=== PATIENT | female | born 1950 | race Caucasian/White ===

== ENCOUNTER → 2017-10-03 00:48 | Outpatient (CLI) | payer BC, SELFPAY ==
[2017-10-03 11:31] LABS: CREATININE 0.71 mg/dL (0.55-1.02); Cholesterol 247 mg/dL (50-200); Glucose 92 mg/dL (70-100); HDL Cholesterol 92 mg/dL (40-60); LDL CHOLESTEROL 148 mg/dL (<100); Triglyceride 52 mg/dL (30-150)
== END ==
PROVIDERS: PCP Family Medicine; Visit Provider Family Medicine
DX: E78.5 Hyperlipidemia, unspecified (principal); I48.0 Paroxysmal atrial fibrillation; Z13.1 Encounter for screening for diabetes mellitus
CPT/HCPCS: 36415; 80061; 82947; 83721; 82565

== ENCOUNTER 2018-07-31 02:05 | Outpatient (CLI) | payer BC, SELFPAY ==
[2018-07-31 11:25] LABS: Cholesterol 195 mg/dL (50-200); HDL Cholesterol 77 mg/dL (40-60); LDL CHOLESTEROL 97 mg/dL (<100); Triglyceride 65 mg/dL (30-150)
[2018-08-03 11:16] LABS: Hepatitis C Ab w Rflx HCV PCR Negative (NEGAT)
== END 2018-07-31 02:25 ==
PROVIDERS: PCP Family Medicine; Visit Provider Family Medicine
DX: E78.5 Hyperlipidemia, unspecified (principal); Z11.59 Encounter for screening for other viral diseases
CPT/HCPCS: 36415; 80061; 83721; 86803

== ENCOUNTER → 2019-04-06 10:23 | Outpatient (BNVA) | payer MEDICARE, BC, SELFPAY | PROVIDERS: PCP Family Medicine; Referring Provider Family Medicine; Visit Provider Internal Medicine Cardiovascular Disease | DX: I48.0 Paroxysmal atrial fibrillation (principal); E78.00 Pure hypercholesterolemia, unspecified | CPT/HCPCS: 99204; 99215 ==

== ENCOUNTER 2019-09-16 02:53 | Outpatient (CLI) | payer MEDICARE, BC, SELFPAY ==
[2019-09-16 13:04] LABS: CREATININE 0.64 mg/dL (0.55-1.02); Calculated LDL 80 mg/dL (<100); Cholesterol 162 mg/dL (<200); HDL Cholesterol 70 mg/dL (40-60); Triglyceride 61 mg/dL (<150)
== END 2019-09-16 03:13 ==
PROVIDERS: PCP Family Medicine; Visit Provider Family Medicine
DX: E78.5 Hyperlipidemia, unspecified (principal); I48.0 Paroxysmal atrial fibrillation
CPT/HCPCS: 36415; 80061; 82565

== ENCOUNTER → 2020-05-02 11:32 | Outpatient (BNVA) | payer MEDICARE, BC, SELFPAY | PROVIDERS: PCP Family Medicine; Referring Provider Family Medicine; Visit Provider Internal Medicine Cardiovascular Disease | DX: I48.0 Paroxysmal atrial fibrillation (principal); E78.00 Pure hypercholesterolemia, unspecified; Z79.01 Long term (current) use of anticoagulants | CPT/HCPCS: 99214; 99213 ==

== ENCOUNTER 2020-05-29 15:39 | Outpatient (REF) | payer MEDICARE, BC, SELFPAY ==
--- NOTE | 2020-05-29 14:42 | SKI_PTH ---
PATIENT: Kathy Elaine LOC: [facility] U#:[id number] AGE/SX: 70/F ROOM: RE05/29/[address]: Speedy Cruz DO : 1950 BED: DIS: 05/29/2020 SPEC #: [id number] RECD: 05/29/20 18:06 STATUS: MARLON REQ #: [id number] BRETT: 05/29/20 14:[address]: Speedy Cruz DEPT: Surgical Specimen RECD BY: Tamika Rasmussen ENTERED: 05/29/20 18:06 SP TYPE: SKI OTHR DR: Enoc Collier MD Tissues: 1 - SKIN BIOPSY(SHAVE/PUNCH) Procedures: SKIN LEVEL 4 Comments: [id number]
== END 2020-05-29 15:40 | disposition home or self-care (01) ==
LOC: LBN 15:39
PROVIDERS: PCP Family Medicine; Visit Provider Otolaryngology Otolaryngology/Facial Plastic Surgery
DX: C44.311 Basal cell carcinoma of skin of nose (principal)
CPT/HCPCS: 88305

== ENCOUNTER 2020-09-14 03:39 | Outpatient (CLI) | payer MEDICARE, BC, SELFPAY ==
[2020-09-14 07:53] LABS: HCT 41.1 % (36.0-46.0); HGB 13.5 g/dL (11.2-15.7); MCH 31.8 pg (27.0-33.0); MCHC 32.8 % (32.0-36.0); MCV 96.7 fL (80-95); MPV 8.4 fL (8.0-11.0); Platelet Count 213 10^3/uL (130-400); RBC 4.25 10^6/uL (3.93-5.22); RDW 11.6 % (11.7-14.6); RDW-SD 40.9 fL; WBC 5.73 10^3/uL (4.4-10.8)
[2020-09-14 10:02] LABS: Glucose 101 mg/dL (74-106)
[2020-09-15 21:21] LABS: Calculated LDL 125 mg/dL (<100); Cholesterol 239 mg/dL (<200); HDL Cholesterol 99 mg/dL (40-60); Triglyceride 78 mg/dL (<150)
== END 2020-09-14 03:40 | disposition home or self-care (01) ==
LOC: LBO 03:39
PROVIDERS: PCP Family Medicine; Visit Provider Family Medicine
DX: E78.5 Hyperlipidemia, unspecified (principal); R73.9 Hyperglycemia, unspecified; R53.83 Other fatigue
CPT/HCPCS: 36415; 80061; 82947; 85027

== ENCOUNTER → 2020-09-26 10:57 | Outpatient (BNVA) | payer MEDICARE, BC, SELFPAY | PROVIDERS: PCP Family Medicine; Referring Provider Family Medicine; Visit Provider Internal Medicine Cardiovascular Disease | DX: I48.0 Paroxysmal atrial fibrillation (principal); E78.00 Pure hypercholesterolemia, unspecified | CPT/HCPCS: 99214; 99213 ==

== ENCOUNTER 2020-09-29 03:24 | Outpatient (CLI) | payer MEDICARE, BC, SELFPAY ==
[2020-09-29 08:44] LABS: Calculated LDL 95 mg/dL (<100); Cholesterol 204 mg/dL (<200); HDL Cholesterol 100 mg/dL (40-60); Triglyceride 46 mg/dL (<150)
== END 2020-09-29 03:25 | disposition home or self-care (01) ==
LOC: LBO 03:24
PROVIDERS: PCP Family Medicine; Visit Provider Internal Medicine Cardiovascular Disease
DX: E78.00 Pure hypercholesterolemia, unspecified (principal)
CPT/HCPCS: 36415; 80061

== ENCOUNTER 2020-11-24 02:51 | Outpatient (CLI) | payer MEDICARE, BC, SELFPAY ==
[2020-11-24 09:26] LABS: Calculated LDL 82 mg/dL (<100); Cholesterol 182 mg/dL (<200); HDL Cholesterol 92 mg/dL (40-60); Triglyceride 40 mg/dL (<150)
== END 2020-11-24 02:52 | disposition home or self-care (01) ==
LOC: LBO 02:51
PROVIDERS: PCP Family Medicine; Visit Provider Internal Medicine Cardiovascular Disease
DX: E78.00 Pure hypercholesterolemia, unspecified (principal)
CPT/HCPCS: 36415; 80061

== ENCOUNTER → 2021-01-04 10:46 | Outpatient (BNVA) | payer MEDICARE, BC, SELFPAY | PROVIDERS: PCP Family Medicine; Visit Provider Internal Medicine Cardiovascular Disease | DX: I48.0 Paroxysmal atrial fibrillation (principal); E78.00 Pure hypercholesterolemia, unspecified; Z79.899 Other long term (current) drug therapy | CPT/HCPCS: 99213 ==

== ENCOUNTER → 2021-07-05 10:59 | Outpatient (BNVA) | payer MEDICARE, BC, SELFPAY | PROVIDERS: PCP Family Medicine; Referring Provider Family Medicine; Visit Provider Internal Medicine Cardiovascular Disease | DX: I48.0 Paroxysmal atrial fibrillation (principal); E78.00 Pure hypercholesterolemia, unspecified | CPT/HCPCS: 99214; 99213 ==

== ENCOUNTER 2021-08-10 14:40 | Outpatient (REF) | payer MEDICARE, BC, SELFPAY ==
--- NOTE | 2021-08-10 13:45 | SKI_PTH ---
PATIENT: Kathy Elaine LOC: [facility] U#:[id number] AGE/SX: 71/F ROOM: RE08/10/[address]: KHOI Rader : 1950 BED: DIS: 08/10/2021 SPEC #: [id number] RECD: 08/10/21 18:25 STATUS: MARLON REQ #: [id number] BRETT: 08/10/21 13:[address]: Too Roach DEPT: Surgical Specimen RECD BY: Tamika Rasmussen ENTERED: 08/10/21 18:25 SP TYPE: DB CASTILLO DR: Enoc Collier MD Tissues: 1 - SKIN BIOPSY(SHAVE/PUNCH) Procedures: SKIN LEVEL 4 Comments:
== END 2021-08-10 14:41 | disposition home or self-care (01) ==
LOC: LBN 14:40
PROVIDERS: PCP Family Medicine; Visit Provider Physician Assistant
DX: D22.5 Melanocytic nevi of trunk (principal)
CPT/HCPCS: 88305

== ENCOUNTER 2021-10-05 01:50 | Outpatient (CLI) | payer MEDICARE, BC, SELFPAY ==
[2021-10-05 07:18] LABS: HCT 34.4 % (36.0-46.0); HGB 11.7 g/dL (11.2-15.7); MCH 32.3 pg (27.0-33.0); MCV 95 fL (80-95); MPV 8.3 fL (8.0-11.0); Platelet Count 175 10^3/uL (130-400); RBC 3.62 10^6/uL (3.93-5.22); RDW 11.5 % (11.7-14.6); RDW-SD 39.9 fL; WBC 4.31 10^3/uL (4.4-10.8)
[2021-10-05 07:37] LABS: Calculated LDL 72 mg/dL (<100); Cholesterol 178 mg/dL (<200); HDL Cholesterol 97 mg/dL (40-60); Triglyceride 49 mg/dL (<150)
== END 2021-10-05 01:51 | disposition home or self-care (01) ==
LOC: LBO 01:50
PROVIDERS: PCP Family Medicine; Visit Provider Family Medicine
DX: R53.83 Other fatigue (principal); E78.5 Hyperlipidemia, unspecified
CPT/HCPCS: 36415; 80061; 85027

== ENCOUNTER → 2021-12-13 01:30 | Outpatient (CLI) | payer MEDICARE, BC, SELFPAY ==
--- NOTE | 2021-12-13 08:00 | DI.DEXA_ITS ---
Exam(s) XR DEXA BONE DENSITY W/WO MOLLY EXAM: XR DEXA BONE DENSITY W/WO MOLLY CLINICAL HISTORY: fibular fracture Z78.0 MENOPAUSAL SCREENING FOR OSTEOPOROSIS TECHNIQUE: COMPARISON: No exams were available for comparison FINDINGS: Lateral Spine Image: Unremarkable. No compression deformities identified. Left hip: Total T-Score: -1.8 Total Z-Score: -0.3 T- and Z-scores: Findings are consistent with osteopenia. Lumbar Spine: Total T-Score: -2.7 Total Z-Score: -0.5 T- and Z-scores: Findings are consistent with osteoporosis. IMPRESSION: Osteoporosis in the lumbar spine.
== END ==
PROVIDERS: PCP Family Medicine; Visit Provider Family Medicine
DX: Z78.0 Asymptomatic menopausal state (principal); Z13.820 Encounter for screening for osteoporosis; M85.88 Other specified disorders of bone density and structure, other site; M81.0 Age-related osteoporosis without current pathological fracture
CPT/HCPCS: 77080

== ENCOUNTER 2022-01-08 03:19 | Outpatient (CLI) | payer MEDICARE, BC, SELFPAY ==
[2022-01-08 07:30] LABS: Abs Immature Grans 0.01 10^3/uL (0.0-0.06); Absolute Basophil Count 0.05 10^3/uL (0.0-0.2); Absolute Eosinophil Count 0.14 10^3/uL (0.0-0.7); Absolute Lymphocyte Count 1.65 10^3/uL (1.2-3.4); Absolute Monocyte Count 0.38 10^3/uL (0.1-0.8); Absolute Neutrophil Count 2.15 10^3/uL (1.2-6.7); Basophils % 1.1; Eosinophils % 3.2; HCT 36.3 % (36.0-46.0); HGB 12.3 g/dL (11.2-15.7); Immature Grans % 0.2; Lymphocytes % 37.7; MCH 32.1 pg (27.0-33.0); MCHC 33.9 % (32.0-36.0); MCV 95 fL (80-95); MPV 8.7 fL (8.0-11.0); Monocytes % 8.7; Neutrophils % 49.1; Platelet Count 205 10^3/uL (130-400); RBC 3.83 10^6/uL (3.93-5.22); RDW 11.2 % (11.7-14.6); RDW-SD 38.5 fL; WBC 4.38 10^3/uL (4.4-10.8)
== END 2022-01-08 03:20 | disposition home or self-care (01) ==
LOC: LBO 03:19
PROVIDERS: PCP Family Medicine; Visit Provider Family Medicine
DX: D64.9 Anemia, unspecified (principal)
CPT/HCPCS: 36415; 85025

== ENCOUNTER 2022-02-08 14:32 | Outpatient (REF) | payer MEDICARE, BC, SELFPAY ==
--- NOTE | 2022-02-08 14:15 | SKI_PTH ---
PATIENT: Kathy Elaine LOC: [facility] U#:[id number] AGE/SX: 71/F ROOM: RE02/08/[address]: KHOI Rader : 1950 BED: DIS: 02/08/2022 SPEC #: [id number] RECD: 02/11/22 12:12 STATUS: MARLON REQ #: [id number] BRETT: 02/08/22 14:[address]: Too Roach DEPT: Surgical Specimen RECD BY: Tamika Rasmussen ENTERED: 02/11/22 12:13 SP TYPE: DB CASTILLO DR: Enoc Collier MD Tissues: 1 - SKIN BIOPSY(SHAVE/PUNCH) Procedures: IMMUNOPEROXIDASE STAIN SKIN LEVEL 4 Comments: [id number]
== END 2022-02-08 14:33 | disposition home or self-care (01) ==
LOC: LBN 14:32
PROVIDERS: PCP Family Medicine; Visit Provider Physician Assistant
DX: D22.5 Melanocytic nevi of trunk (principal)
CPT/HCPCS: 88305; 88361

== ENCOUNTER 2022-07-09 07:51 | Outpatient (CLI) | payer MEDICARE, BC, SELFPAY | END 2022-07-09 07:52 | disposition home or self-care (01) | LOC: DI.CARD 07:52 | PROVIDERS: PCP Family Medicine; Visit Provider Internal Medicine Cardiovascular Disease | DX: I48.91 Unspecified atrial fibrillation (principal) | CPT/HCPCS: 93010 ==

== ENCOUNTER → 2022-07-09 13:18 | Outpatient (BNVA) | payer MEDICARE, BC, SELFPAY | PROVIDERS: PCP Family Medicine; Visit Provider Internal Medicine Cardiovascular Disease | DX: I48.0 Paroxysmal atrial fibrillation (principal); E78.00 Pure hypercholesterolemia, unspecified; Z79.01 Long term (current) use of anticoagulants | CPT/HCPCS: 93005; 99213 ==

== ENCOUNTER 2022-07-15 16:50 | Outpatient (REF) | payer MEDICARE, BC, SELFPAY | END 2022-07-15 16:51 | disposition home or self-care (01) | LOC: LBN 16:50 | PROVIDERS: PCP Family Medicine; Visit Provider Nurse Practitioner Family | DX: L02.31 Cutaneous abscess of buttock (principal) | CPT/HCPCS: 87070; 87205 ==

== ENCOUNTER → 2022-07-31 12:57 | Outpatient (BNVA) | payer MEDICARE, BC, SELFPAY | PROVIDERS: PCP Family Medicine; Referring Provider Family Medicine; Visit Provider Surgery | DX: L02.31 Cutaneous abscess of buttock (principal) | CPT/HCPCS: 99213 ==

== ENCOUNTER 2023-07-01 08:09 | Outpatient (CLI) | payer MEDICARE, BC, SELFPAY ==
--- NOTE | 2023-07-01 08:00 | RT.EKG_ITS ---
APPROVED REPORT Exam: Resting ECG Reason for Exam: PAF Patient Location: O HR:108 bpm ECG Measurements Heart Rate 108 AXIS ME [id number] P [id number] QRSd 124 QRS 29 QT 344 T 18 QTc 461 Conclusion Atrial fibrillation...V-rate 71-142, irreg A-activity Baseline wander in lead(s) II,aVF
== END 2023-07-01 08:10 | disposition home or self-care (01) ==
LOC: DI.CARD 08:10
PROVIDERS: PCP Family Medicine; Visit Provider Internal Medicine Cardiovascular Disease
DX: I48.0 Paroxysmal atrial fibrillation (principal)
CPT/HCPCS: 93010

== ENCOUNTER → 2023-07-01 13:23 | Outpatient (BNVA) | payer MEDICARE, BC, SELFPAY | PROVIDERS: PCP Family Medicine; Visit Provider Internal Medicine Cardiovascular Disease | DX: I48.0 Paroxysmal atrial fibrillation (principal) | CPT/HCPCS: 93005; 99213 ==

== ENCOUNTER → 2023-08-05 02:15 | Outpatient (CLI) | payer MEDICARE, BC, SELFPAY ==
--- NOTE | 2023-08-05 08:30 | DI.US_ITS ---
APPROVED REPORT EXAM: Comprehensive 2D, Doppler, and color-flow Echocardiogram Patient Location: Out-Patient Director Account Management: Abrahan Puentes RDCS (AE) Indications: Paroxysmal afib Conclusion Normal left ventricular wall thickness and chamber size. Ejection fraction is 55%. Wall motion is n ormal Normal right ventricular size and function Both atria are mildly dilated Trileaflet aortic valve without stenosis or regurgitation Mildly thickened mitral leaflets with mild to moderate regurgitation Mild tricuspid regurgitation. Estimated right ventricular systolic pressure is 29 mmHg Wall motion Left Ventricle The left ventricle is normal size. Left ventricular systolic function is normal. There is normal left ventricular wall thickness. There is normal LV segmental wall motion. There is no ventricular septal defect visualized. LVEF is 56%. Right Ventricle The right ventricle is normal size. Right ventricular systolic function is grossly normal. Atria Left atrium is mildly dilated. Right atrium is mildly dilated. The interatrial septum is intact with no evidence for an atrial septal defect. Aortic Valve The aortic valve is normal in structure. Aortic valve is trileaflet. There is no aortic valvular sten osis. No aortic regurgitation is present. Mitral Valve Mildly thickened mitral leaflets No evidence of mitral valve stenosis. Mild to moderate mitral regurg itation. Tricuspid Valve The tricuspid valve is normal in structure. There is no tricuspid valve stenosis. Mild tricuspid regu rgitation. The RVSP is 29.1 mmHg. Pulmonic Valve The pulmonary valve is normal in structure. There is no pulmonic valvular stenosis. There is no pulmo tyree valvular regurgitation. Great Vessels The aortic root is normal in size. The ascending aorta is normal in size. Aortic arch is normal in ca liber. IVC is normal in size and collapses >50% with inspiration. Pericardium There is no pericardial effusion. 2D Dimensions IVSD d PLAX 0.65 cm F: 0.6-1.0 Ao Root d 2.81 cm F: 2.7 - 3.3 LVPW d PLAX 0.68 cm F: 0.6 - 1.0 Ao Asc Diam d 3.09 cm F: 2.3 - 3.1 LVID d PLAX 4.62 cm F: 3.8 - 5.2 LVDs 3.30 cm F: 2.2 - 3.5 LV EF Teichholz 55.3 % FS 28.69 % LV EDV (Teich) 98.4 mL LV ESV (Teich) 44.0 mL Stroke Vol Index (Teich) 31.63 M-Mode TAPSE 2.88 cm (M/F) >1.7 Auto EF LV EDV A4C 82.5 mL LV EDV A2C 81.9 mL LV EDV BP 82.9 mL LV ESV A4C 39.9 mL LV ESV A2C 36.1 mL LV ESV BP 37.8 mL LVEF(%) A4C 51.6 % LVEF(%) A2C 55.9 % LVEF(%) BP 54.4 % LV SV A4C 42.5 ml LV SV A2C 45.8 ml LV SV BP 45.1 ml LV CO A4C 2.7 L/min LV CO A2C 2.8 L/min LV CO BP 2.7 L/min HR A4C 62.83 BPM HR A2C 61.23 BPM LV EDV Index (BP) LA Volume LA Length A4C 4.8 cm LA Length A2C 6.4 cm LA Area A4C s 14.91 cm2 LA Area A2C s 16.03 cm2 LA Vol A4C A-L 39.25 mL LA Vol A2C A-L 34.32 mL LA Vol Biplane A-L 42.2 mL LA Vol/BSA A4C A-L LA Vol/BSA A2C A-L LA Vol/BSA BP A-L 24.5 mL/m2 LA Vol A4C MOD 37.1 mL LA Vol A2C MOD 32.7 mL LA Vol BP MOD 39.6 mL RA Volume RA Area A4C 15.0 cm2 RA ESV A4C (A-L) 38.2mL RA Vol/BSA A4C A-L RA Length A4C 5.0 cm RA ESV A4C (MOD) 36.3mL LV Diastology MV E' medial 0.116 (>0.07 m/s) MV E Vmax 0.97 (0.4-1.3 m/s) MV E/E' MED 8.36 (<14) MV A Vmax 0.90 (0.4-1.3 m/s) MV E' lateral 0.129 (>0.1 m/s) E/A Ratio 1.1 MV E/E' LAT 7.53 (<14) MV E' Average 0.122 m/s MV E/E'(average) 7.93 Aortic Valve AoV Vmax 1.12 m/s LVOT Vmax 0.90 m/s AoV Peak Grad 5.1 mmHg LVOT Peak Grad 3.3 mmHg AoV Area (Vmax) 2.50 cm2 LVOT VTI 0.244 m AoV VTI 0.298 m LVOT Mean Grad 1.9 mmHg AoV Mean Magdy. 0.82 m/s LVOT SV 75.75 mL AoV Mean Grad 2.9 mmHg LVOT Diam s 1.95 cm AoV Area (VTI) 2.54 cm2 Velocity Ratio 0.80 Mitral Valve MV DT 233 (160-240 msec) Pulmonary Valve PV Vmax 0.80 (0.5-1.5 m/s) RVOT Vmax 0.49 m/s PV Peak Grad 2.6 mmHg RVOT Peak Gr. 1.0 mmHg PV Mean Magdy 0.60 m/s RVOT VTI 0.119 m PV Mean Grad 1.6 mmHg RVOT Mean Gr. 0.5 mmHg Tricuspid Valve RA Pressure 3.00 mmHg TR Vmax 2.56 m/s TR Peak Grad 26.1 mmHg RVSP (TR) 29.1 mmHg
== END ==
PROVIDERS: PCP Family Medicine; Visit Provider Internal Medicine Cardiovascular Disease
DX: I48.0 Paroxysmal atrial fibrillation (principal)
CPT/HCPCS: 93306

== ENCOUNTER 2023-11-07 01:09 | Outpatient (CLI) | payer MEDICARE, BC, SELFPAY ==
[2023-11-07 08:12] LABS: Calculated LDL 80 mg/dL (<100); Cholesterol 185 mg/dL (<200); Glucose 99 mg/dL (74-106); HDL Cholesterol 94 mg/dL (40-60); Triglyceride 55 mg/dL (<150)
[2023-11-07 08:16] LABS: Hemoglobin A1C 5.6 % (<5.7)
== END 2023-11-07 01:10 | disposition home or self-care (01) ==
PROVIDERS: PCP Family Medicine; Visit Provider Family Medicine
DX: E11.9 Type 2 diabetes mellitus without complications (principal); R73.9 Hyperglycemia, unspecified; E78.5 Hyperlipidemia, unspecified
CPT/HCPCS: 36415; 80061; 82947; 83036

== ENCOUNTER → 2023-12-29 13:17 | Outpatient (BNVA) | payer MEDICARE, BC, SELFPAY | PROVIDERS: PCP Family Medicine; Visit Provider Internal Medicine Cardiovascular Disease | DX: I48.0 Paroxysmal atrial fibrillation (principal) | CPT/HCPCS: 99213 ==

== ENCOUNTER 2024-05-29 18:38 | Emergency (ER) | payer MEDICARE, BC, SELFPAY ==
[2024-05-29] VITALS (19 sets, daily range): BP systolic 137–194; BP diastolic 75–144; PULSE 91–170; RESP 12–20; TEMP 36.6; O2SAT 92–98
--- NOTE | 2024-05-29 19:00 | DI.RAD_ITS ---
Exam(s) XR WRIST RT COMPLETE EXAM: XR WRIST RT COMPLETE CLINICAL HISTORY: + deformity distal radius. TECHNIQUE: 2D digital imaging was performed. COMPARISON: CR,XR XR WRIST LT COMPLETE from 05/29/2024 FINDINGS: 3 views There is a mildly impacted fracture of the distal radius which does not appear to obviously involve t he radiocarpal joint surface but does exhibit mild dorsal displacement of the distal fracture fragmen t. The ulnar styloid appears intact. There is no significant ulnar variance. Scaphoid and scapholunate distance unremarkable. Mild degenerative changes are noted in the triscaphe joint; less so at the 1 st carpometacarpal joint. IMPRESSION: Mildly impacted transverse fracture of the distal radius. The fracture line does not obviously invol ve the radiocarpal joint surface on this side. DATA REPOSITORY: RADIATION DOSE DELIVERED:
--- NOTE | 2024-05-29 19:00 | DI.RAD_ITS ---
Exam(s) XR WRIST LT COMPLETE EXAM: XR WRIST LT COMPLETE CLINICAL HISTORY: + deformity distal radius. TECHNIQUE: 2D digital imaging was performed. COMPARISON: No exams were available for comparison FINDINGS: 3 views There are fractures of the distal radius and ulna. The radial fracture is impacted and dorsally angu lated and involves the radiocarpal joint surface. The ulnar fracture is both at the neck and at the ulnar styloid, the latter being displaced. Scaphoi d and scapholunate distance are normal. No carpal dislocation. There are advanced degenerative craig ges in the 1st carpometacarpal joint noted. IMPRESSION: Impacted fractures of distal radius and ulna. There is some dorsal angulation at the distal radial f racture site. No carpal dislocation but there are degenerative changes in the triscaphe articulation as well as in the 1st carpometacarpal joint. DATA REPOSITORY: RADIATION DOSE DELIVERED:
--- NOTE | 2024-05-29 19:02 | ED.GENADUL_ITS ---
Discharge Plan Disposition Patient Disposition: Home Condition: Stable Discharge Details Clinical Impression: Fracture of distal end of left radius and ulna, Distal radius fracture, right Primary Care Provider: Enoc Collier ED Provider: Asia Sweeney Home Meds and New Rx's Prescriptions: New Morphine Ir, 4 Tabs/Btl [Msir, 4 Tabs/Btl] 15 mg PO DISPENSE PRNQty: 4 0RF Continued acetaminophen [Tylenol Extra Strength] 500 mg tablet 500 - 1,000 mg PO DAILY PRN PRN loratadine [Claritin] 10 mg tablet 10 mg PO DAILY PRN calcium carbonate-vitamin D3 [Caltrate with Vitamin D3] 600 mg-20 mcg (800 unit) tablet 2 tab PO BID fluorouracil [Efudex] 5 % cream 1 applic topical bid 21 Days Qty: 40 1RF Eliquis 5 mg tablet 5 mg PO BID Qty: 180 3RF diltiazem HCl 180 mg capsule,extended release 24hr 180 mg PO DAILY Qty: 90 3RF rosuvastatin 20 mg tablet 20 mg PO DAILY Qty: 90 3RF Discharge Instructions Instructions: Wrist Fracture (DC) Additional Instructions: Please call [facility] orthopedic clinic first thing Friday to schedule follow-up appointment for definitive management of your wrist fractures. Elevate your wrist above heart level, apply ice for 15 to 20 minutes at a time every hour, and take Tylenol 650 mg every 6 hours [id number] for the first couple of days. For severe pain you may use the morphine tablets provided; may take 1 tablet every 6 hours as needed for severe pain. Please have somebody stay with you to help with self-care. If you have any itching to your splint, do not put anything down. You may tap gently on the outside of the cast to help with any itching. Do not get your splint wet, treated as a cast. I recommend that you use cast bags or medium size garbage bags to cover the cast. Take bed baths or bucket baths to help prevent getting the splint wet. Return to emergency care if you develop new coolness, blueness, numbness to your fingers, severe wrist pain, or if you are very worried and need to be rechecked again immediately. Referrals: [facility] [Provider Group] HPI General Date/Time Provider Initiated Documentation: 05/29/24 18:40 . HPI Narrative: Kathy is a 74 year old female who presents to the emergency department today for evaluation of bilateral wrist pain. She reports that she was carrying her dinner when she slipped, causing her to fall backwards. She attempted to catch herself with her hands, experienced pain bilaterally immediately afterwards. She denies hitting her head, back pain, lower extremity pain, other injuries. No distal numbness/tingling. She does have osteoporosis, is taking calcium supplementation. She is anticoagulated for A-fib. Past medical history is significant for osteoporosis, A-fib, HLD. Physical exam remarkable for deformities to bilateral wrists at the distal radius. + CMS to fingers bilaterally, brisk cap refill. Distal pulses intact. No pain with palpation of proximal forearm or elbow. No C-spine/T-spine/L-spine tenderness/step-off/deformity. No other injuries noted. History and presentation concerning for bilateral distal radius fractures. No red flags concerning for neurovascular compromise at this time. I independently interpreted the following tests: Xray L wrist and R wrist- +distal radius fractures While in the emergency department, Kathy received Tylenol for discomfort. Presented option of hematoma block versus procedural sedation with Kathy. She would like to go ahead with procedural sedation, Dr. Dyer and to discuss risks and benefits of procedure; informed consent obtained. Procedural sedation performed with ketamine, patient tolerated reduction of L distal radius fracture well. Bilateral sugartong splints applied, neurovascular intact after procedure. History and presentation consistent with bilateral distal radius fractures with left ulnar styloid fracture. No signs of neurovascular compromise. Patient has friends who can take care of her, she will go home with her friend and tonight and will help her with self-care. A limited number of morphine tablets given for severe pain, patient is currently comfortable with splints in place and Tylenol. Patient was able to fully recover from sedation, tolerated PO without difficulty and is able to ambulate independently. Reviewed discharge instructions with patient, including symptomatic management and red flags indicating need for return to emergency care Related Data Home Medications ?Medication ?Instructions ?Recorded ?Confirmed acetaminophen 500 mg tablet 500 - 1,000 mg PO DAILY PRN PRN 07/10/18 05/29/24 (Tylenol Extra Strength) loratadine 10 mg tablet (Claritin) 10 mg PO DAILY PRN 07/05/21 05/29/24 apixaban 5 mg tablet (Eliquis) 5 mg PO BID #180 tabs 10/27/23 05/29/24 diltiazem HCl 180 mg 180 mg PO DAILY #90 caps 10/27/23 05/29/24 capsule,extended release 24 hr rosuvastatin 20 mg tablet 20 mg PO DAILY #90 tabs 10/27/23 05/29/24 fluorouracil 5 % topical cream 1 applic topical bid 21 days #40 10/31/23 05/29/24 (Efudex) grams calcium 600 mg (as 2 tab PO BID 12/29/23 05/29/24 carbonate)-vitamin D3 20 mcg (800 unit) tablet (Caltrate with Vitamin D3) MORPHine IR, 4 tabs/btl [MSIR, 4 15 mg PO DISPENSE PRN #4 tabs 05/29/24 tabs/btl] Previous Rx's ?Medication ?Instructions ?Recorded apixaban 5 mg tablet (Eliquis) 5 mg PO BID #180 tabs 10/27/23 diltiazem HCl 180 mg 180 mg PO DAILY #90 caps 10/27/23 capsule,extended release 24 hr rosuvastatin 20 mg tablet 20 mg PO DAILY #90 tabs 10/27/23 fluorouracil 5 % topical cream 1 applic topical bid 21 days #40 10/31/23 (Efudex) grams MORPHine IR, 4 tabs/btl [MSIR, 4 15 mg PO DISPENSE PRN #4 tabs 05/29/24 tabs/btl] Allergies Allergy/AdvReac Type Severity Reaction Status Date / Time No Known Allergies Allergy Verified 05/29/24 18:41 General Stated Complaint: Orthopedic ELDER: 3 Review of Systems Narrative: see HPI Exam Const General: cooperative and healthy appearing Nutritional Appearance: average body habitus Orientation: alert and oriented x3 HENMT Head: normal to inspection, atraumatic, no Berry's sign and no raccoon eyes Neck Neck: normal visual inspection and full ROM Back/Spine/Pelvis Cervical Spine: normal cervical lordosis and cervical ROM normal Thoracic/Lumbar Spine: thoracic and lumbar spine normal to inspection Neuro General: patient alert, patient oriented x3, tone normal and moves all extremities Cognition: normal cognition Speech: speech normal Motor: muscle tone normal throughout and strength 5/5 throughout Sensory Exam: no sensory deficits noted Extrem General: capillary refill normal Right upper extremity: wrist Details: abnormal to inspection Details: obvious deformity (distal radius), tenderness, swelling, abnormal ROM, normal vascular exam and radial pulse present; no abrasions, no lacerations, no ecchymosis, no foreign body and no penetrating wound Left upper extremity: wrist Details: abnormal to inspection Details: obvious deformity (distal radius), tenderness, swelling, normal vascular exam and radial pulse present; no unusual warmth, no abrasions, no lacerations, no ecchymosis, no crepitus, no foreign bodies and no penetrating wound Right lower extremity: normal to inspection Course Vital Signs Vital signs: Vital Signs Temperature 36.6 C 05/29/24 18:42 Pulse 91 H 05/29/24 18:42 Respiratory Rate 16 05/29/24 18:42 Pulse Oximetry 98 05/29/24 18:42 Temperature 36.6 C 05/29/24 18:42 Temperature Source Oral 05/29/24 18:42 Pulse 91 H 05/29/24 18:42 Respiratory Rate 16 05/29/24 18:42 Blood Pressure Position Sitting 05/29/24 18:42 Pulse Oximetry 98 05/29/24 18:42 Oxygen Delivery Method Room Air 05/29/24 18:42 Oxygen Flow Rate 0 05/29/24 18:42 Pain Level 6 05/29/24 18:42 Procedure Orthopedic Splinting/Casting Patient Consented: Verbally Side: left Upper Extremity Injury Location: wrist Upper Extremity Immobilizer: sugartong splint Procedure Description/Note: Sugartong splint also applied to R wrist Medical Decision Making Imaging Data Radiologic Study: Radiologist's impression: PROCEDURE INFORMATION: Exam: XR Right Wrist Exam date and time: 05/29/2024 7:22 PM Age: 74 years old Clinical indication: Other: Deformity TECHNIQUE: Imaging protocol: Radiologic exam of the right wrist. Views: 3 or more views. COMPARISON: No relevant prior studies available. FINDINGS: Bones/joints: There is an impacted fracture noted through the distal metaphysis of the right radius. There is mild dorsal displacement of the distal fracture fragment. No definite extension into the joint space. There is a linear lucency in the distal ulnar metaphysis, which may represent a nutrient foramen or nondisplaced fracture. Soft tissues: Soft tissue edema noted surrounding the wrist. IMPRESSION: 1. Impacted fracture through the distal radius as described. 2. Linear lucency in the distal ulna may represent a nutrient foramen or nondisplaced fracture. Correlate with physical examination findings. Radiologic Study #2: Radiologist's impression: PROCEDURE INFORMATION: Exam: XR Left Wrist Exam date and time: 05/29/2024 7:16 PM Age: 74 years old Clinical indication: Deformity TECHNIQUE: Imaging protocol: Radiologic exam of the left wrist. Views: 3 or more views. COMPARISON: No relevant prior studies available. FINDINGS: Bones/joints: There is a horizontally impacted fracture through the distal radius with slight lateral displacement of the distal fragment. There is also a horizontal fracture through the distal ulnar metaphysis. There is a displaced ulnar styloid process fracture also noted. There is degenerative joint disease seen most prominent at the 1st metacarpophalangeal joints with joint space narrowing, sclerosis and osteophytosis. Mild displacement of the metacarpophalangeal joint may be degenerative in nature. Soft tissues: Significant subcutaneous soft tissue edema noted surrounding the wrist. IMPRESSION: Significant impacted fractures of the distal radius and ulna as described. No joint dislocation. Quality:SDOH Health Related Social Needs: No Data to Display PFSH All Active Problems (Updated 05/29/24 @ 21:40 by Asia Woodard) Distal radius fracture, right (Acute) Fracture of distal end of left radius and ulna (Acute) History of basal cell cancer (Acute) Multiple actinic keratoses (Acute) Rosacea (Acute) Paroxysmal atrial fibrillation (Acute 06/28/16) on eliquis Malignant neoplasm of uterus (Acute 01/30/05) stage 1-s/p TAHBSO Hyperlipidemia (Acute 04/15/12) Annual physical exam (Acute) IBS (irritable bowel syndrome) (Chronic) Lesion of nose (Acute) Cutaneous abscess of buttock (Acute) Surgical History Abdominal hysterectomy (~11/2006) Uterine CA Fracture, Closed Treatment (~10/2011) left fibula Appendectomy (~1969) Family History Mother , 79 Diabetes Essential hypertension Depression Hyperlipidemia Heart disease Father , 65 Heart disease Hyperlipidemia Stroke Esophageal cancer Brother , PE at age 47. Pulmonary embolism Esophageal cancer Brother No problems noted. Maternal Grandfather , 75 Heart disease Stroke Paternal Grandfather , RUPTURED APPENDIX at age 23. No problems noted. Maternal Grandmother , 85 Stroke Paternal Grandmother , 85 Stroke Social History Smoking/Tobacco Use Status: Former Tobacco Use tobacco type: cigarettes Quit Date: 03/03/73 Tobacco: How many years used: 2 Second Hand Exposure: Yes Smoking risk assessment performed?: Yes Alcohol Intake: current Alcohol Intake frequency: a few times a week Alcohol type: wine Drug use: Never Substance use type: former substance user Date of last use: remote/experiments in 1970s Counseling given: No Caregiver/Support person: No Household members: none Housing: house Communication Needs: None and Corrective Lenses Do you need help understanding health information?: Never Pets and animals: Yes Pets and animals: cat(s) Sexually active: No Do you think of yourself as: lesbian/reyes/homosexual Current gender identity: female What is your relationship status?: never How often do you talk on the phone with friends or family?: once per week How often do you get together with friends or relatives?: twice per week How often do you attend evangelical or cheondoism services?: 4 or more times per year Do you belong to any clubs or organized social groups?: yes Panel score (0-1 are the most socially isolated patients): 3 What type of physical activity do you participate in: walking, weight lifting and additional Details: shu chi 2x/week, strength & flexibility exercise class 2x/week Duration: 45-60 minutes/day Frequency: daily Aurora/Spiritism: Jehovah'S Witness Special aurora needs: No (Call a sergeant missile crewman if very ill or dying) Seatbelt use: always Helmet use: No Drive intox or ride w/intox driver education instructor: No PAWSS Have you Been Recently Intoxicated or Drunk Within the Last 30 days?: No Have you Ever Experienced Previous Episodes of Alcohol Withdrawal?: No Have you ever Experienced Withdrawal Seizures?: No Have you ever Experienced Delirium Tremens(DT)s?: No Have you ever undergone Alcohol Rehabilitation Treatment (i.e, inpt ot outpatient treatment programs)?: No Have you ever Experienced Blackouts?: No Have you ever Combined Alcohol with other Downers within the last 90 days?: No Have you ever Combined Alcohol with any other Substance of Abuse during the last 90 days?: No Positive Blood Alcohol level on Presentation? [PCS.BAL]: No Evidence of Increased Autonomic Activity (i.e. HR>120, tremor, sweating, agitation, nausea)?: No Result: 0
[2024-05-29] MEDS: Acetaminophen 325 MG TAB 650 MG PO (19:08)
[2024-05-29] MEDS: Normal Saline 1,000 ML 1000 ML IV (20:31)
--- NOTE | 2024-05-29 20:34 | DI.VRAD_ITS ---
PROCEDURE INFORMATION: Exam: XR Right Wrist Exam date and time: 05/29/2024 7:22 PM Age: 74 years old Clinical indication: Other: Deformity TECHNIQUE: Imaging protocol: Radiologic exam of the right wrist. Views: 3 or more views. COMPARISON: No relevant prior studies available. FINDINGS: Bones/joints: There is an impacted fracture noted through the distal metaphysis of the right radius. There is mild dorsal displacement of the distal fracture fragment. No definite extension into the joint space. There is a linear lucency in the distal ulnar metaphysis, which may represent a nutrient foramen or nondisplaced fracture. Soft tissues: Soft tissue edema noted surrounding the wrist. IMPRESSION: 1. Impacted fracture through the distal radius as described. 2. Linear lucency in the distal ulna may represent a nutrient foramen or nondisplaced fracture. Correlate with physical examination findings. Dictated and Authenticated by: Tamra Faulkner MD. Orderin Keyona Betancourt MD
--- NOTE | 2024-05-29 20:37 | DI.VRAD_ITS ---
PROCEDURE INFORMATION: Exam: XR Left Wrist Exam date and time: 05/29/2024 7:16 PM Age: 74 years old Clinical indication: Deformity TECHNIQUE: Imaging protocol: Radiologic exam of the left wrist. Views: 3 or more views. COMPARISON: No relevant prior studies available. FINDINGS: Bones/joints: There is a horizontally impacted fracture through the distal radius with slight lateral displacement of the distal fragment. There is also a horizontal fracture through the distal ulnar metaphysis. There is a displaced ulnar styloid process fracture also noted. There is degenerative joint disease seen most prominent at the 1st metacarpophalangeal joints with joint space narrowing, sclerosis and osteophytosis. Mild displacement of the metacarpophalangeal joint may be degenerative in nature. Soft tissues: Significant subcutaneous soft tissue edema noted surrounding the wrist. IMPRESSION: Significant impacted fractures of the distal radius and ulna as described. No joint dislocation. Dictated and Authenticated by: Tamra Faulkner MD. Orderin Keyona Betancourt MD
[2024-05-29] MEDS: Ketamine 500 MG/10 ML VIAL 70 MG IVP (20:43)
--- NOTE | 2024-05-29 20:45 | DI.RAD_ITS ---
Exam(s) XR WRIST LT LIMITED EXAM: XR WRIST LT LIMITED CLINICAL HISTORY: post-reduction. TECHNIQUE: 2D digital imaging was performed. COMPARISON: CR LEFT HAND COMPLETE from 03/25/2011 CR,XR XR WRIST LT COMPLETE from 05/29/2024 FINDINGS: Two in cast views-AP and lateral There is an impacted fracture of the distal radius with moderate dorsal angulation. Fracture appears to involve the radiocarpal joint surface. Mild positive ulnar variance is noted. There is also fra cture in the neck of the distal ulna and ulnar styloid again evident. No carpal dislocation. IMPRESSION: As above. Similar to pre reduction images. DATA REPOSITORY: RADIATION DOSE DELIVERED:
--- NOTE | 2024-05-29 21:01 | PROC.BLANK_ITS ---
Date of service: 05/29/24 Procedures Procedural Sedation Indication: fracture/dislocation reduction Preparation: monitoring and evaluation advisor applied, pulse oximeter, capnometry used, supplemental O2 applied and suction/airway equipment at bedside Ketamine: IV Ketamine dose (mg): 70 Patient Tolerated Procedure: well Complications: none Interventions: oxygen applied Additional Comments: Sedation requried for reduction of left wrist fracture/dislocation, no complications. Patient unable to sign consent due to bilateral wrist fractures. Medical Decision Making Quality:SDOH Health Related Social Needs: No Data to Display
--- NOTE | 2024-05-29 22:42 | DI.VRAD_ITS ---
PROCEDURE INFORMATION: Exam: XR Left Wrist Exam date and time: 05/29/2024 9:05 PM Age: 74 years old Clinical indication: Other: Post-reduction TECHNIQUE: Imaging protocol: Radiologic exam of the left wrist. Views: 1 or 2 views. COMPARISON: CR XR WRIST LT COMPLETE 05/29/2024 7:16 PM FINDINGS: Bones/joints: Impacted fracture of the distal radius with moderate dorsal angulation distal fragment appears similar to the earlier study. Ulnar styloid fracture poorly demonstrated due to overlying casting material. Bones are diffusely osteopenic with significant degenerative changes in the 1st carpometacarpal joint. Soft tissues: Normal. IMPRESSION: Similar alignment of impacted and angulated distal radius fracture as described. Dictated and Authenticated by: Hang Bajwa MD. Orderin Keyona Betancourt MD
[2024-05-29] MEDS: MORPHine IR 15 MG TAB, 4 TABS/BTL PO (22:43)
== END 2024-05-29 23:04 | disposition home or self-care (01) ==
PROVIDERS: Emergency Provider Nurse Practitioner Family; PCP Family Medicine
DX: S52.615A Nondisplaced fracture of left ulna styloid process, initial encounter for closed fracture (principal); S52.591A Other fractures of lower end of right radius, initial encounter for closed fracture; S52.592A Other fractures of lower end of left radius, initial encounter for closed fracture; I48.0 Paroxysmal atrial fibrillation; E78.5 Hyperlipidemia, unspecified; Z87.891 Personal history of nicotine dependence; W01.0XXA Fall on same level from slipping, tripping and stumbling without subsequent striking against object, initial encounter; Y93.01 Activity, walking, marching and hiking; Y92.010 Kitchen of single-family (private) house as the place of occurrence of the external cause
CPT/HCPCS: 29125; 76000; 96360; 96361; 99156; 99285; 25605; 73100; 73110; 99284; J2003

== ENCOUNTER → 2024-05-31 14:45 | Outpatient (BNVA) | payer MEDICARE, BC, SELFPAY | PROVIDERS: PCP Family Medicine; Referring Provider Family Medicine; Visit Provider Student in an Organized Health Care Education/Training Program | DX: S52.501A Unspecified fracture of the lower end of right radius, initial encounter for closed fracture (principal); S52.502A Unspecified fracture of the lower end of left radius, initial encounter for closed fracture; S52.602A Unspecified fracture of lower end of left ulna, initial encounter for closed fracture; W19.XXXA Unspecified fall, initial encounter; Y92.000 Kitchen of unspecified non-institutional (private) residence as the place of occurrence of the external cause; Z79.01 Long term (current) use of anticoagulants | CPT/HCPCS: 99214 ==

== ENCOUNTER 2024-06-02 14:01 | Inpatient (IN) | payer MEDICARE, BC, SELFPAY ==
[2024-06-02] VITALS (14 sets, daily range): BP systolic 119–150; BP diastolic 63–108; PULSE 72–134; RESP 15–18; TEMP 36.1–37.3; O2SAT 93–100; BMI 25.7
--- NOTE | 2024-06-02 11:44 | ANES.PREOP_ITS ---
General Info Date of Service Date Performed: 06/02/24 Height: 5 ft 5 in Weight: 70.307 kg Body Mass Index (BMI): 25.7 Surgical Procedure: Operation Date: 06/02/24 14:55 Proposed Procedure Side Surgeon p Wrist ORIF Distal Radius Bilateral Abhinav Munoz MD Meds Allergies and Home Medications Allergies Allergy/AdvReac Type Severity Reaction Status Date / Time No Known Allergies Allergy Verified 06/02/24 12:21 Home Medication ?Medication ?Instructions ?Recorded acetaminophen 500 mg tablet 500 - 1,000 mg PO DAILY PRN PRN 07/10/18 (Tylenol Extra Strength) loratadine 10 mg tablet (Claritin) 10 mg PO DAILY PRN 07/05/21 apixaban 5 mg tablet (Eliquis) 5 mg PO BID #180 tabs 10/27/23 diltiazem HCl 180 mg 180 mg PO DAILY #90 caps 10/27/23 capsule,extended release 24 hr rosuvastatin 20 mg tablet 20 mg PO DAILY #90 tabs 10/27/23 fluorouracil 5 % topical cream 1 applic topical bid 21 days #40 10/31/23 (Efudex) grams calcium 600 mg (as 2 tab PO BID 12/29/23 carbonate)-vitamin D3 20 mcg (800 unit) tablet (Caltrate with Vitamin D3) MORPHine IR, 4 tabs/btl [MSIR, 4 15 mg PO DISPENSE PRN #4 tabs 05/29/24 tabs/btl] Current Visit Medications: Current Medications Generic Name Dose Route Start Last Admin Trade Name Freq PRN Reason Stop Dose Admin Acetaminophen 1,000 mg 06/02/24 06:00 Acetaminophen 500 Mg Tab PO 06/02/24 23:59 PREOP TIGRE Celecoxib 400 mg 06/02/24 06:00 Celecoxib 200 Mg Cap PO 06/02/24 23:59 PREOP TIGRE Ringer's Solution 1,000 mls @ 80 mls/hr 06/02/24 06:00 IV 06/02/24 23:59 INFUSION TIGRE Cefazolin Sodium/Dextrose 2 gm in 50 mls @ 100 mls/hr 06/02/24 06:00 Ancef Duplex IVPB 06/02/24 23:59 PREOP TIGRE Tranexamic Acid/Sodium Chloride 1,000 mg in 100 mls @ 600 mls/hr 06/02/24 06:00 IVPB 06/02/24 23:59 PREOP TIGRE IV Miscellaneous Supplies 1 each 06/02/24 06:00 Iv Access IV 06/02/24 23:59 DIRECTED TIGRE Sodium Chloride 0 ml 06/02/24 06:00 Normal Saline Flush 10 Ml Syr IV 06/02/24 23:59 PRN PRN Sodium Chloride 0 ml 06/02/24 06:00 Normal Saline 10 Ml Vial IJ 06/02/24 23:59 DIRECTED PRN Sterile Water 0 ml 06/02/24 06:00 Water,Injection,Sterile 10 Ml Vial IJ 06/02/24 23:59 DIRECTED PRN PFSH Active Problems Active Problems: Problem Status Onset Code Distal radius fracture, right Acute 05/29/24 S52.501A Fracture of distal end of left radius and ulna Acute 05/29/24 S52.502A, S52.602A History of basal cell cancer Acute Z85.828 Multiple actinic keratoses Acute L57.0 Rosacea Acute L71.9 Paroxysmal atrial fibrillation Acute 06/28/16 I48.0 Malignant neoplasm of uterus Acute 01/30/05 C55 Hyperlipidemia Acute 04/15/12 E78.5 Annual physical exam Acute Z00.00 IBS (irritable bowel syndrome) Chronic K58.9 Lesion of nose Acute J34.89 Cutaneous abscess of buttock Acute L02.31 Surgical History Surgical History Abdominal hysterectomy (~11/2006) Uterine CA Fracture, Closed Treatment (~10/2011) left fibula Appendectomy (~1969) Tobacco Smoking/Tobacco Use Status: Former Tobacco Use Passive smoking exposure: No Second hand exposure: Yes Alcohol Alcohol Intake: current Alcohol intake frequency: a few times a week Alcohol type: wine Substance Use Substance use: Never Substance use type: does not use Vital Signs and Lab Results Vital Signs Most Recent Vital Signs in EMR: Temp Pulse Resp BP Pulse Ox 36.4 C L 72 18 141/87 H 100 06/02/24 12:00 06/02/24 12:00 06/02/24 12:00 06/02/24 12:00 06/02/24 12:00 Lab Results Blood Type / Crossmatch: No Data to Display Complete Blood Count: No Data to Display Complete Metabolic Panel: No Data to Display Liver Function Panel: No Data to Display Coagulation Panel: No Data to Display Cardiac Panel: No Data to Display Arterial Blood Gas: No Data to Display Venous Blood Gas: No Data to Display Pancreas Panel: No Data to Display Thyroid Panel: No Data to Display Infectious Disease: No Data to Display Blood Cultures: No Data to Display Toxicology Panel: No Data to Display Anesthesia Assessment and Plan Anesthesia History Personal History: No History of General Anesthesia Family History: No Family History of Anesthesia Complications Exercise Tolerance Exercise Tolerance: Metabolic Equivalents>4 Cardiac & Pulmonary Exam Cardiac Exam: Normal S1/S2 Heart Sounds Pulmonary Exam: Clear Bilateral Breath Sounds Implantable Cardiac Device Does patient have a Pacemaker or an ICD?: No Airway Exam Known Difficult Airway: No Mallampati Class: 4 Mouth Opening: Normal (> 3cm) Thyromental Distance: Less than 3 cm Neck Range of Motion: Full ROM Neck Circumference: Normal Teeth Condition: Normal Dentition ASA Classification ASA Score: ASA 2 Emergency Case?: No NPO Status NPO Status: NPO Clears >2 hours, Solids >8 hours Anesthesia Plan Resuscitation Status: Full Code Anesthesia Technique: General Anesthesia Airway Planned: Endotracheal Tube Pain Management: Other (Rescue brachial plexus block. ) Monitors Used: Standard Monitors Preoperative Comments:: 74 yo female for bilateral wrist ORIF. Fell backwards in her kitchen, recalls the fall, did not strike her head. In the ED fractures reduced with Ketamine 70 mg (she didn't enjoy the ketamine). Took acetaminophen this AM with her dilt. Sig PMHx: a fib (apixaban - last dose ~ 48 hrs ago, dilt - took this AM), former smoker (1973), occasional EtOH. ECHO: LVEF 55%, mild-mod MR, mild TR. ECG: afib. Discussed plan of GA LMA vs ETT, but due to surgical time will likely ETT. Res cue regional anesthesia discussed.
[2024-06-02] MEDS: Lactated Ringers 1,000 ML 80 ML IV ×2 (13:07→19:23)
--- NOTE | 2024-06-02 13:15 | DI.RAD_ITS ---
Exam(s) XR WRIST LT LIMITED EXAM: XR WRIST LT LIMITED CLINICAL HISTORY: LEFT WRIST FRACTURE. TECHNIQUE: 2D digital imaging was performed. COMPARISON: CR,XR XR WRIST LT LIMITED from 05/29/2024 FINDINGS: Intraoperative fluoroscopy was provided during ORIF of left wrist fracture. See procedure report for details IMPRESSION: Radiation exposure index/cumulative dose:suki Youngblood= 2.2497mGy DATA REPOSITORY: RADIATION DOSE DELIVERED:
[2024-06-02] MEDS: Celecoxib 200 MG CAP 400 MG PO (13:19)
[2024-06-02] MEDS: Acetaminophen 500 MG TAB 1000 MG PO ×2 (13:20→21:06)
[2024-06-02] MEDS: ceFAZolin 2 GM/50 ML BAG IVPB (13:56)
[2024-06-02] MEDS: TRANEXAMIC ACID/SOD. CHL. 1,000 MG/100 ML BAG 600 MG IVPB (14:00)
--- NOTE | 2024-06-02 14:07 | W.PM.OP ---
Operative Note Operative Note PRE-OP DIAGNOSIS: Bilateral Distal Radius Fracture POST-OP DIAGNOSIS: same PROCEDURE: Open Reduction and Internal Fixation of Left Distal Radius, 3 parts Open Reduction and Internal Fixation of Right Distal Radius, 1 epiphyseal part SURGEON: Abhinav Munoz KILN OPERATOR HELPER: Salomón Lala ANESTHESIA TYPE: General LMA/ETT Refer to Anesthesia Record ESTIMATED BLOOD LOSS: 10 PATHOLOGY: none sent TOURNIQUET TIME: 90 COMPLICATIONS: None Patient was transported to: PACU Patient's condition: stable Indications: Kathy is a 74 year old female who I have seen for a distal radius fracture. Given the deformity, displacement, fracture pattern, and effect on daily function, I recommended surgical fixation. I reviewed the risk of the procedure to include bleeding, infection co-pay, stiffness, damage to nerves and vessels, damage to muscles and tendons, malunion, nonunion, hardware prominence, tendon rupture, need for repeat procedures. Despite these risks, the patient elected to proceed. Findings: Left distal radius had significant comminution involving the entire volar aspect of the distal radius. There is an intra-articular split both coronal and sagittal. There was significant metaphyseal void and bone was quite soft. Obtaining reduction was challenging and I was able to have provisional reduction with multiple K wires, secured with a volar locking plate. The right distal radius fracture had a primary metaphyseal fracture line without intra-articular extension. This was reduced and fixed with a volar locking plate. Procedure Description: Kathy was greeted in the preoperative holding area. The correct patient and site was confirmed and marked. The history and physical was updated. The consent was reviewed the patient and signed. The patient was taken to the operating room and placed in the supine position. All bony problems were well-padded. The left arm was placed onto a radiolucent hand table. A nonsterile tourniquet was placed high up on the arm. Prophylactic antibiotics in the form of cefazolin were administered. The left arm was prepped with ChloraPrep and draped in a standard fashion. A timeout was performed for safe surgery. LEFT WRIST A standard longitudinal incision was made overlying the flexor carpi radialis tendon starting at the distal wrist crease and moving proximally. The skin was incised sharply. The flexor carpi radialis tendon and its sheath is identified. The sheath was opened. The tendon was moved ulnarly in the floor of the sheath was incised. Blunt dissection the flexor pollicis longus muscle belly and tendon were also made radially exposing the pronator quadratus and the distal radius. The printer quadratus was elevated with an ulnar-based flap. This exposed the volar distal radius and the fracture. The fracture is notable comminution. There is a loose radial styloid piece with some proximal extension there is also a volar piece of bone which is free in the middle portion and the volar?ulnar aspect was also loose and mobile. A montelongo elevator was used for full exposure of the volar surface of the distal radius. The primary fracture line was exposed. Using a series of elevators, curettes, and knife, the fracture was fully debrided. I used a freer elevator to help mobilize the fragments. X-rays also utilized during this. It was very difficult to appreciate the fracture plane is there is multiple broken pieces which are free moving against each other. I tried to manipulate these fracture fragments individually but unfortunately the bone was so soft I was unable to hold any significant reduction tool such as a K wire forcep to manipulate the bone. However, I was able to grossly reduce the arm by some traction and direct manipulation sandwiching the pieces back together. This seemed to provisionally reduce the bone and the joint to a more acceptable reduction. This was then held with a series of K wires. The distal radius clamp was utilized with a 3 hole plate and the plate was placed on the volar surface of the distal radius and sandwich down to the bone. This sandwiching effect of the distal radius clamps seem to keep the fracture fragments reduced. I then focused on reduction of the plate down to the bone distally. This was first done with a 2.4 mm nonlocking screw which had marginal fixation. I then placed 3 additional locking screws. This was then manipulated down onto the shaft. There seem to be excellent reduction of the height in the radial ankle nation. The distal radius epiphyseal fragment seem to be slightly volarly displaced. However, I was unable to capture these most distal fragments as they were beyond the watershed zone. Additionally, attempts at mobilization of the fracture fragment separately with a K wire was unsuccessful as the bone was fragmenting. I then left these in place and continue with placement of 3 nonlocking screws proximal to the shaft. This had good fixation and fixed the plate down to the bone. The nonlocking screw distally was replaced. Final x-rays were obtained which showed the joint was fairly well-maintained. There may be a very slight step-off at the intra-articular split on the lateral view. The alignment in the AP view was nearly anatomic. The dorsal sunrise view was also obtained to ensure correct sizing of screws. The wound was then thoroughly irrigated. The pronator quadratus was reapproximated with a 0 Vicryl. The tourniquet was released and there was no notable vascular injury. The fingers were warm and well-perfused. The deep dermal layer was closed with a 2-0 Vicryl. The skin was closed with 4-0 nylon. The wound was dressed with Xeroform, 4 x 4's, web roll. A short arm splint was applied. RIGHT WRIST Attention was then turned to the right side. The stretcher was turned 180 degrees and the right arm was placed onto a hand table. No tourniquet was used on the side. A standard longitudinal incision was made overlying the flexor carpi radialis tendon starting at the distal wrist crease and moving proximally. The skin was incised sharply. The flexor carpi radialis tendon and its sheath is identified. The sheath was opened. The tendon was moved ulnarly in the floor of the sheath was incised. Blunt dissection the flexor pollicis longus muscle belly and tendon were also made radially exposing the pronator quadratus and the distal radius. The printer quadratus was elevated with an ulnar-based flap. This exposed the volar distal radius and the fracture. A montelongo elevator was used for full exposure of the volar surface of the distal radius. The primary fracture line was exposed. Using a series of elevators, curettes, and knife, the fracture was fully debrided of any fibrous tissue. I used a freer elevator to help mobilize the fragments. There is a primary transverse fracture of the metaphyseal region of the volar distal radius. This is able to be reduced with the manipulation. Fluoroscopic images were used to confirm adequate reduction. An appropriately sized Synthes volar locking plate was then placed onto the bony surface of the distal radius. Was then held there with a distal radius clamp sandwiching the plate to the distal segment. A single K wire was placed through the distal end. Fluoroscopy was once again used to confirm appropriate positioning of the plate on the distal radius. A reduction K wire was placed into the slotted hole on the shaft but not tightened all the way to allow for manipulation of the distal segment onto the proximal shaft. A single nonlocking screw was placed to the distal portion of the plate securing the plate against the bone of the distal radial metaphysis. Once again, the plate was evaluated to make sure it was aligned appropriately. The single screw was also checked to make sure it was in appropriate positioning for trajectory of future screws. The remainder of the screws within the volar locking plate were filled with locking screws. These were made sure not to penetrate the dorsal cortex. Once these were applied the proximal portion of the plate was further reduced down onto the shaft, which further reduce the distal segment. This was held in position with a tightened reduction K wire. Fluoroscopy was then used against confirm appropriate reduction. Unfortunately, the plate rotated and placement of the final screws distally. I was able to manipulate the plate such that it was still on the shaft of the radius but it was oblique in nature such that the most proximal screw hole was not fully on the bone. Nevertheless, I placed a single locking screw in the more proximal shaft hole and a single nonlocking screw in the middle shaft hole. I left the most proximal hole unfilled. Final x-rays were obtained which demonstrated adequate reduction and positioning of hardware. The dorsal sunrise view was also obtained to ensure correct sizing of screws. The wound was then thoroughly irrigated. The pronator quadratus was reapproximated with a 0 Vicryl. The tourniquet was released and there was no notable vascular injury. The fingers were warm and well-perfused. The deep dermal layer was closed with a 2-0 Vicryl. The skin was closed with 4-0 nylon. The wound was dressed with Xeroform, 4 x 4's, web roll. A short arm splint was applied. At the end the case all counts are correct. Patient was transferred back to the PACU in stable condition. She did have some run of tachycardia with her known atrial fibrillation. She was in an irregular rhythm with rates as high as 180 bpm. However, this improved on its own with the administration of diltiazem in time. She was stable upon extubation without any significant rate exacerbation. Date of Procedure: 06/02/24
[2024-06-02] MEDS: Bupivacaine 0.5% Pres-Free W/EPI 30 ML VIAL (14:27)
--- NOTE | 2024-06-02 17:45 | PT.INNT ---
PT Notes Patient still at OR as of 5:45 PM. Will check in with patient for PT evaluation on 06/03/2024, as ordered.
[2024-06-02] MEDS: fentaNYL 100 MCG/2 ML VIAL IVP (18:01)
--- NOTE | 2024-06-02 18:28 | W.ANESPOSTOP ---
Postoperative Evaluation Date, Time and Location Date Performed: 06/02/24 Time Performed: 18:20 Patient Location: PACU Vital Signs Most Recent Imported Vital Signs: Most Recent Vital Signs Temp Pulse Resp BP Pulse Ox 36.2 C L 92 H 15 128/80 94 06/02/24 18:01 06/02/24 18:01 06/02/24 18:01 06/02/24 18:01 06/02/24 18:01 Pain Score Most Recent Pain Score: Most Recent Pain Score Pain Level 5 06/02/24 18:01 Assessment Mental Status: Awake (Alert & Oriented to Patient Baseline) Airway and Respiratory Function: Patent airway with normal (patient baseline) respiratory exam Cardiovascular Function: Hemodynamically Stable Hydration Status: Adequately Hydrated Nausea & Vomiting: No Nausea or Vomiting Pain: Pain is tolerable per patient Peripheral Nerve Block: Patient did not receive a nerve block Postoperative Comments:: Pt. will go to medical floor tonight on telemetry. Currentyl A-Fib with decent rate control. No ectopy except as noted during intraop period.
--- NOTE | 2024-06-02 18:36 | W.PC.ACHO ---
Registration Status: Primary Language: Preferred Language: (Last Reviewed 06/02/24 @ 12:29 by Yanna Hunt) Abdominal hysterectomy (~11/2006) Fracture, Closed Treatment (~10/2011) Appendectomy (~1969) Most Recent Vital Signs Temperature 36.2 C L 06/02/24 18:17 Pulse 95 H 06/02/24 18:17 Pulse Rhythm Regular 06/02/24 12:00 Respiratory Rate 16 06/02/24 18:17 Respiratory Depth Normal 06/02/24 12:00 Blood Pressure 119/65 06/02/24 18:17 Pulse Oximetry 95 06/02/24 18:17 Respiratory End-tidal CO2 37 06/02/24 18:17 Oxygen Delivery Method Room Air 06/02/24 18:17 Oxygen Flow Rate 0 06/02/24 18:17 Pain Level 5 06/02/24 18:17 Allergies No Known Allergies Allergy (Verified 06/02/24 12:21) Active Medications Generic Name Dose Route Start Last Admin Trade Name Freq PRN Reason Stop Dose Admin Acetaminophen 1,000 mg 06/02/24 06:00 06/02/24 13:20 Acetaminophen 500 Mg Tab PO 06/02/24 23:59 1,000 mg PREOP TIGRE Administration Celecoxib 400 mg 06/02/24 06:00 06/02/24 13:19 Celecoxib 200 Mg Cap PO 06/02/24 23:59 400 mg PREOP TIGRE Administration Fentanyl 0 mcg 06/02/24 14:40 06/02/24 18:01 Fentanyl 100 Mcg/2 Ml Vial IVP 07/02/24 14:39 25 mcg DIRECTED PRN Administration Ringer's Solution 1,000 mls @ 80 mls/hr 06/02/24 06:00 06/02/24 18:01 IV 06/02/24 23:59 80 mls/hr INFUSION TIGRE Infusion Cefazolin Sodium/Dextrose 2 gm in 50 mls @ 100 mls/hr 06/02/24 06:00 06/02/24 14:00 Ancef Duplex IVPB 06/02/24 23:59 Infused PREOP TIGRE Infusion Tranexamic Acid/Sodium Chloride 1,000 mg in 100 mls @ 600 mls/hr 06/02/24 06:00 06/02/24 14:10 IVPB 06/02/24 23:59 Infused PREOP TIGRE Infusion IV IV Catheter Type [Right Peripheral IV Antecubital] IV Catheter Gauge [Right 20 Antecubital] Intake and Output - 24 Hour Total 06/01/24 08:34 thru 06/02/24 18:17 Intake Total 800 Balance 800 Weight 69.3 kg Intake: IV 650 Oral 150 Other: Emesis Description None v v v v v v v v v Sending and/or Receiving Nurses: Please use comment section below to note any information pertinent to the patient hand-off not included above. Information / Comments: Report via bedside. First vitals taken. Please see lenora operative report. Uncontrolled afib throughout. Post op OBS anticipated discharge 06/03/24 Report received from: Vipul RN (OR) [id number]
--- NOTE | 2024-06-02 18:51 | DI.RAD_ITS ---
Exam(s) XR WRIST RT LIMITED EXAM: XR WRIST RT LIMITED CLINICAL HISTORY: RIGHT WRIST FRACTURE. TECHNIQUE: 2D digital imaging was performed. COMPARISON: CR,XR XR WRIST RT COMPLETE from 05/29/2024 FINDINGS: Intraoperative views of the right wrist. Fluoroscopy provided during ORIF placement of volar fixatio n plate. See procedure report for details . Total fluoroscopy time 45 seconds IMPRESSION: Radiation exposure index/cumulative dose:Ka,r= 0.3580mGy DATA REPOSITORY: RADIATION DOSE DELIVERED:
[2024-06-02] MEDS: Apixaban 5 MG TAB PO (21:06)
[2024-06-02] MEDS: dilTIAZem 30 MG TAB PO (21:56)
[2024-06-02] MEDS: ceFAZolin 1 GM/50 ML BAG IVPB (22:23)
[2024-06-02] MEDS: traMADol 50 MG TAB PO (22:59)
[2024-06-03] VITALS (8 sets, daily range): BP systolic 87–118; BP diastolic 51–76; PULSE 65–180; RESP 16–20; TEMP 35.6–36.4; O2SAT 93–97
[2024-06-03] MEDS: traMADol 50 MG TAB PO ×4 (03:11→21:13)
[2024-06-03] MEDS: ceFAZolin 1 GM/50 ML BAG IVPB (06:18)
[2024-06-03 06:34] LABS: HCT 37.8 % (36.0-46.0); HGB 12.8 g/dL (11.2-15.7); MCH 32.4 pg (27.0-33.0); MCHC 33.9 % (32.0-36.0); MCV 96 fL (80-95); Platelet Count 228 10^3/uL (130-400); RBC 3.95 10^6/uL (3.93-5.22); RDW 11.2 % (11.7-14.6); RDW-SD 39.6 fL; WBC 12.45 10^3/uL (4.4-10.8)
[2024-06-03] MEDS: dilTIAZem CD 180 MG CAPCR PO (08:50)
[2024-06-03] MEDS: Apixaban 5 MG TAB PO ×2 (08:51→19:25)
[2024-06-03] MEDS: Acetaminophen 500 MG TAB 1000 MG PO ×3 (08:51→19:25)
[2024-06-03] MEDS: Normal Saline Flush 10 ML SYR IVP (08:52)
[2024-06-03] MEDS: Metoprolol 5 MG/5 ML VIAL IVP (10:24)
--- NOTE | 2024-06-03 10:33 | W.MEDCONSULT ---
Date of service: 06/03/24 Time of Service: 10:33 Assessment and Plan Assessment and plan (1) Paroxysmal atrial fibrillation with RVR: Status: Acute Assessment and plan: - Patient has a history of paroxysmal A-fib and is normally on 180 mg p.o. long-acting diltiazem daily as well as Eliquis, both of which have been continued -Patient was noted postoperatively to have elevated heart rates but improved prior to coming up to MedSurg unit -Overnight 06-20 patient's heart rates again increased and she was started on an additional 30 mg of p.o. short acting diltiazem every 6 hours -However, the morning of 06/03/2024 patient's heart rate was again elevated up to the 160s, but significantly improved within 10 minutes of administration of 5 mg of IV Lopressor -Will continue to monitor patient on the aforementioned oral regimen, and give additional doses of IV Lopressor if needed -Likely that intra and postoperative physiologic stress is led to short-term increase of heart rate and RVR, therefore at this time I am hesitant to be overly aggressive and increasing her home rate control regimen, but will do so if additional doses of IV Lopressor are required -Will continue to follow along with the patient and manage her heart rate (2) Bilateral radial fractures: Status: Acute Assessment and plan: - Postop day 1 status post bilateral fixation -Continue to manage as per orthopedic surgery History of Present Illness History of Present Illness Chief Complaint: a-fib RVR Narrative: 74-year-old female with past medical history of atrial fibrillation on Eliquis who is postop day 1 from bilateral open reduction and internal fixation of distal radius who was admitted postoperatively overnight and developed A-fib RVR. Postoperatively the patient was noted as having elevated heart rates but prior to leaving the PACU and come to the MedSurg unit her heart rates had returned to normal and more in the 80s. However, overnight 06/02/2024 patient was again noted as having elevated heart rates, up to the 160s for which nighttime physician added 30 mg every 6 hours of p.o. diltiazem in addition to her home dosage of extended release p.o. diltiazem 180 mg. However, the morning of 06/03/2024 the patient's heart rate remained elevated up into the 160s, at which time patient's orthopedic surgeon Dr. Munoz requested medical consultation and management for A-fib RVR. Patient was seen after administration of 5 mg IV Lopressor which already significantly improved her heart rate which is down into the 80s to 90s. Patient states that she feels significantly better, no longer has palpitations. She did deny any lightheadedness, dizziness, chest pain, nausea or vomiting. Review of Systems All systems reviewed & are unremarkable except as noted in HPI and below PFSH All Active Problems (Updated 06/03/24 @ 10:37 by Mal Blanton MD) Bilateral radial fractures (Acute) Paroxysmal atrial fibrillation with RVR (Acute) Distal radius fracture, right (Acute 05/29/24) Fracture of distal end of left radius and ulna (Acute 05/29/24) History of basal cell cancer (Acute) Multiple actinic keratoses (Acute) Rosacea (Acute) Paroxysmal atrial fibrillation (Acute 06/28/16) on eliquis Malignant neoplasm of uterus (Acute 01/30/05) stage 1-s/p TAHBSO Hyperlipidemia (Acute 04/15/12) Annual physical exam (Acute) IBS (irritable bowel syndrome) (Chronic) Lesion of nose (Acute) Cutaneous abscess of buttock (Acute) Surgical History Abdominal hysterectomy (~11/2006) Uterine CA Fracture, Closed Treatment (~10/2011) left fibula Appendectomy (~1969) Family History Mother , 79 Diabetes Essential hypertension Depression Hyperlipidemia Heart disease Father , 65 Heart disease Hyperlipidemia Stroke Esophageal cancer Brother , PE at age 47. Pulmonary embolism Esophageal cancer Brother No problems noted. Maternal Grandfather , 75 Heart disease Stroke Paternal Grandfather , RUPTURED APPENDIX at age 23. No problems noted. Maternal Grandmother , 85 Stroke Paternal Grandmother , 85 Stroke Social History Smoking/Tobacco Use Status: Former Tobacco Use tobacco type: cigarettes Quit Date: 03/03/73 Tobacco: How many years used: 2 Second Hand Exposure: Yes Smoking risk assessment performed?: Yes Alcohol Intake: current Alcohol Intake frequency: a few times a week Alcohol type: wine Drug use: Never Substance use type: does not use Counseling given: No Caregiver/Support person: No Household members: none Housing: house Communication Needs: None and Corrective Lenses Do you need help understanding health information?: Never Pets and animals: Yes Pets and animals: cat(s) Sexually active: No Do you think of yourself as: lesbian/reyes/homosexual Current gender identity: female What is your relationship status?: never How often do you talk on the phone with friends or family?: once per week How often do you get together with friends or relatives?: twice per week How often do you attend zoroastrianism or latter day services?: 4 or more times per year Do you belong to any clubs or organized social groups?: yes Panel score (0-1 are the most socially isolated patients): 3 What type of physical activity do you participate in: walking, weight lifting and additional Details: shu chi 2x/week, strength & flexibility exercise class 2x/week Duration: 45-60 minutes/day Frequency: daily Aurora/Cheondoism: Druze Special aurora needs: No (Call a staff submarine warfare officer if very ill or dying) Seatbelt use: always Helmet use: No Drive intox or ride w/intox personal driver: No Do you feel safe at home: Yes Do you feel safe in your relationship?: Yes Exam Narrative Exam Narrative: Well-appearing female laying in bed in no acute distress, ANO x 4, heart irregularly irregular with rates in the 80s to 90s, lungs good auscultation bilaterally, abdomen soft, nontender, nondistended, bilateral wrists wrapped in postoperative bandages without surrounding swelling, erythema or drainage Results Last Vital Signs Temp 97.2 F L 06/03/24 08:18 Pulse 180 H 06/03/24 10:24 Resp 16 06/03/24 08:18 BP 118/62 06/03/24 10:24 Pulse Ox 94 06/03/24 08:18 Labs 06/03/24 05:56 06/03/24 05:56 Labs: Laboratory Results - last 24 hr 06/03/24 05:56 WBC 12.45 H RBC 3.95 Hgb 12.8 Hct 37.8 MCV 96 H MCH 32.4 MCHC 33.9 RDW 11.2 L Plt Count 228 MPV 9.0
--- NOTE | 2024-06-03 12:23 | PT.INIE ---
PT Notes Physical Therapy Inpatient Initial Evaluation Date: 06/03/2024 Referring Doctor: Dr Munoz PT Orders: PT CONSULT: s/p Ortho surgery Precautions: Ambulate with assist, may use right hand for selfcare Patient Profile/Admitting Diagnosis: Pt is 74 yo female presenting s/p ORIF B Wrist on 06/02/2024 under general anesthesia after fall on 05/29/24. She fell backwards and broke her fall with BUE and felt pain immediately. Post op has been complicated by AFib requiring IV medication. PMHX: Distal radius fracture, right (Acute 05/29/24) Fracture of distal end of left radius and ulna (Acute 05/29/24) History of basal cell cancer (Acute) Multiple actinic keratoses (Acute) Rosacea (Acute) Paroxysmal atrial fibrillation (Acute 06/28/16) on eliquis Malignant neoplasm of uterus (Acute 01/30/05) stage 1-s/p TAHBSO Hyperlipidemia (Acute 04/15/12) Annual physical exam (Acute) IBS (irritable bowel syndrome) (Chronic) Lesion of nose (Acute) Cutaneous abscess of buttock (Acute) Surgical History Abdominal hysterectomy (~11/2006) Uterine CAFracture, Closed Treatment (~10/2011) left fibulaAppendectomy (~1969) Social History/Home Situation: Lives alone in single family home with 4 steps with a rail to her [facility] then 3 steps with no rail into home. SHe has a finished basement where her laundry and cat's litter box are located. She was independent ambulation, ADL, meal prep, iADL, driving, homemaking, She attends sabian[employer] and is very active with friends. Equipment Owned/DME: none Subjective: Pt reports she will likely go to her friends home until her first Ortho appointment then will return home. She he reports she walks 3 miles per day and has been getting around at her friends home independently since her fall until the surgery yesterday. Objective: [] General Observation: Female reclined in bed bilateral wrist and hand elevated on pillows with splints in place swelling noted bilateral fingers and elbows Pt with telemetry in place HR 155 nurse requesting pt stay in bed until HR lowers. Pt reapproached after IV medication given with HR in 80s. Nursing reports pt able to participate in out of bed assessment/tasks Vitals: semireclined 87/52 HR 80, sit 99/58 HR 92 assymptomatic ( Pt reports she feels better sitting up than she did in bed) Mental Status: Alert and oriented x 4, cooperative, able to follow commands, able to problem solve for solutions to return home. Agreeable to participate in evaluation Pain: right wrist 2/10, left 4/10 ROM: [] Right Upper Extremity: shoulder and elbow WNL, wrist NT d/t splint, fingers limited by splint Left Upper Extremity: shoulder WNL, elbow limited by pain, wrist NT d/t splint fingers limited by splint Right Lower Extremity: WNL Left Lower Extremity: WNL Strength: [] Right Upper Extremity: shoulder and elbow 3/5, wrist NT, fingers able to wiggle and grasp items such as fork and toothbrush Left Upper Extremity: shoulder 3/5, elbow 3-/5 limited by pain, wrist NT, able to wiggle fingers Right Lower Extremity:5/5 Left Lower Extremity: 5/5 Sensation: intact BLE BUE to elbow and finger tips. Unable to assess wrist and forearm Bed Mobility/Transfers: [] Supine to sit CGA with HOB flat for increased time pt holds left UE with RUE Sit to stand SBA Stand to sit SBA Bed to chair SBA without device Gait: ambulate without AD CGA reciprocal pattern wide DENISA, shortened step length. Balance: [] Static Sitting: Normal Dynamic Sitting: Fair+ Static Standing: Good Dynamic Standing:Fair + Special Tests: [] Mobility Limitations Standardized Measure [] [facility] AM-PAC 6 clicks Basic Mobility Inpatient Short Form: [] Raw Score: 19 CMS Score: 41.77% Informed Consent/Education: Patient instructed in purpose of PT consult. Treatment: BLE seated therex LAQ, marching AP supine heelslides, SLR, hip abd/add positioning of BUE with elevation of hand and wrist in chair and bed. Pt participated in positioning to allow for use of her cell phone and call light in bed with use of wedge and blanket roll. Seated pt able to take drinks with straw when table positioned in front of her. pt able to utilize R hand for cell phone use and utilize speaker function for text and talk. sit to stand from 18 inch height CGAx 5 trials ambulation in room without device CGA x 3 laps. to simulate ambulation within home short distances. Assessment: Pt is 74 yo female presenting with pain L>R wrist s/p B ORIF. Pt post op complicated with elevated HR requiring IV Lopressor to control. Pt is very motivated to return to her PLOF. She has strong support network from friends and sabianist community. She is limited by BUE ROM deficits. Patient presents with clinical signs and symptoms consistent with current/admitting diagnoses that have resulted to mobility limitations, gait instability, generalized weakness, and impairment of motor control as demonstrated by the following impairment level findings: 1. Decreased strength to BUE 2. Impaired standing balance 3. Limitation of joint range of motion in B wrist and hand Impairments are contributing to the following functional limitations: 1. Inability to safely ambulate without assistive device 2. Increase completion time for mobility ADL performance 3. Increased fall risk Patient is assessed as a moderate complexity based on the following: History: 74-year-old female with impairment level findings, functional limitations, and past medical history as indicated above Examination: Demonstrable impairment in strength, balance, and mobility level with underlying impairments and functional limitations as documented above Presentation:evolving Decision Making:moderate Goals: 1. Independent bed mobility with HOB flat 2. independent transfers 3. Independent ambulation 300 feet level surfaces without device 4. supervision 4 steps to safely enter and exit home Plan of Care/Treatment Plan: 1-2x/day, 7 days/week x 1 week. Plan of care has been reviewed with the TABULATING MACHINE MECHANIC providing the service under Physical Therapy direction. Initiate Physical Therapy intervention for strengthening, bed mobility, transfers, gait, stairs, balance training, use of assistive device. DISCHARGE RECOMMENDATIONS: Home with no PT services when medically appropriate. however may benefit from HHAide at her home or friends home TREATMENT CODE/TIME: 30923, [id number]/ [id number], [id number] Thank you for the opportunity to participate in the care of this patient. Please sign an return this page within 30 days if you agree with the above POC. Thank you! Physician Signature Date [facility]
[2024-06-03 13:13] LABS: ALT 18 U/L (14-59); AST 17 U/L (15-37); Albumin 3.1 g/dL (3.4-5.0); Alkaline Phosphatase 53 U/L (46-116); Anion Gap 9.1 mmol/L (3-11); BUN 24 mg/dL (7-18); Bilirubin, Total 0.5 mg/dL (0.2-1.0); CO2 25.9 mmol/L (21.0-32.0); CREATININE 0.7 mg/dL (0.55-1.02); Calcium 8.6 mg/dL (8.5-10.1); Chloride 104 mmol/L (98-107); Estimated GFR 91.26 (mL/min/1.73m2); Glucose 133 mg/dL (74-106); Potassium 4.6 mmol/L (3.5-5.1); Sodium 139 mmol/L (136-145); Total Protein 6.7 g/dL (6.4-8.2)
--- NOTE | 2024-06-03 13:20 | W.PM.PROGNOT ---
Date of Service Date of service: 06/03/24 Time of Service: 12:40 Assessment and Plan Assessment and plan (1) Distal radius fracture, right: Status: Acute (2) Fracture of distal end of left radius and ulna: Status: Acute Assessment and plan: Kathy is postop day #1 status bilateral wrist fracture fixation. Unfortunately, her left side was very challenging with multiple fracture planes and comminution involving the joint and very poor metaphyseal bone. Fixation was successful in obtaining a more appropriate position of the wrist and the distal articular segment. However, the fixation was not robust given the poor situation of the bone. However, it appeared stable during surgery we will continue to follow this with splinting and bracing. The right side is much more stable fixation pattern she is doing well on that side. At this point we will continue to progress occupational physical therapy. Unfortunately, her atrial fibrillation, which is usually rate controlled, has been intermittent at best. She is responding to rate control agents. I have asked for hospice consult. Appreciate their management in the care of her atrial fibrillation. This will likely keep her here tonight and then hopefully home tomorrow assuming that the rate changes are related mostly to procedural stresses. (3) Paroxysmal atrial fibrillation with RVR: Status: Acute Subjective Subjective Interval history since last seen: Kathy overall reports been doing well. She has had some pain in the left elbow and around the left hand but otherwise no significant pain on the right side. She denies numbness or tingling. Unfortunately she did go to an uncontrolled rate last night requiring diltiazem. She also had a another episode of rapid heart rate with symptomatic palpitations this morning which responded to IV metoprolol. She currently denies any other symptoms. Her rate is controlled. Blood pressures been slightly soft but still stable without symptoms. She has been able to use the right hand for feeding herself and for mobilization. She is currently up in a chair. Exam Narrative Exam Narrative: Sitting up in the chair. No acute distress. Alert and oriented x 3. Evaluation of the right upper extremity shows that the splint is in good position. There are some swelling of the fingers. She is able demonstrate full finger range of motion EPL and FPL intact. Sensation tact light touch of the median, radial, ulnar nerve. No significant pain with finger range of motion. Evaluation the left upper extremity shows a splint in position. She does have some restricted elbow flexion related mostly to pain within the forearm. However, she is able demonstrate flexion to least 120 degrees in the left side. She is able demonstrate active FPL and EPL as well as finger flexion extension. However, she does have some pain recreated in the forearm with this motion. Sensation intact to light touch of the median, radial, ulnar nerve. Objective Last Vital Signs Temp 36.3 C L 06/03/24 11:23 Pulse 80 06/03/24 11:23 Resp 16 06/03/24 11:23 BP 87/52 L 06/03/24 11:23 Pulse Ox 95 06/03/24 11:23 Laboratory Results - last 24 hr 06/03/24 05:56 WBC 12.45 H RBC 3.95 Hgb 12.8 Hct 37.8 MCV 96 H MCH 32.4 MCHC 33.9 RDW 11.2 L Plt Count 228 MPV 9.0 Sodium 139 Potassium 4.6 Chloride 104 Carbon Dioxide 25.9 Anion Gap 9.1 BUN 24 H Creatinine 0.7 Est GFR (CKD-EPI 2020) 91.26 Glucose 133 H Calcium 8.6 Total Bilirubin 0.5 AST 17 ALT 18 Alkaline Phosphatase 53 Total Protein 6.7 Albumin 3.1 L Time Spent with Patient Time Spent with Patient: <25 minutes Time was spent: preparing to see the patient(eg.review tests), obtaining and/or reviewing separately otained hiistory, referring, communicating with other health hospice care sales consultant, counseling the patient and care coordination
--- NOTE | 2024-06-03 13:38 | PDOC.CMIN ---
Date of service: 06/03/24 Time of Service: 13:38 Care Management Initial Assmt Initial Assessment Reason for Hospitalization: bilateral wrist fractures, s/p bilateral ORIF 06/02/24. Functional Status/Living Situation Patient Presentation: Kathy is s/p a fall on 05/31 and bilateral repair of her wrists on 06/02. When met with her today, she was very open and pleasant. Kathy had a very good support system in the community, and will be well cared for upon discharge. Prior to her injury, she was independent in all aspects. She intends to return to that status. [facility] of Residence: [facility] Resides with: Alone Significant Other/Family: Out of area (no local family) Natural Supports: excellent friends and hindu community Instrumental Activities of Daily Living (ADLs): Independent (previously independent. Now with bilateral wrist fractures. Will require assistance with ADLs for some time.) Activities/Hobbies/SocialSupport: Kathy is involved in her hindu and is a support to that community. Medications Medication Management: No Issues/Barriers identified Advance Directives Advance Directives: Do you have an Advance Directive: Y 10/03/17 00:48 AD On File at [facility]: Y 03/20/16 15:05 Date Asked 03/20/16 09/25/17 10:19 AD Date Reviewed 06/02/24 06/01/24 11:58 COLST On File at [facility] No 07/15/22 16:56 COLST Date Scanned Code Status Resuscitation Status Full Code Portal Pt does not currently have a portal and education provided: Yes Insurance Coverage/Financial Issues Insurance: Medicare Part A & B /[facility] Care Team Visit Care Team Role Provider Type Enoc Collier MD Primary Care Provider [facility] STAFF PHYSICIAN Amanda Larsen Other Providers REG OCCUPATIONAL THERAPIST Mal Blanton MD Other Providers [facility] STAFF PHYSICIAN Ellis Graff Other Providers OTHER Abhinav Munoz MD Admit Provider [facility] STAFF PHYSICIAN Attending Provider Discharge Potential Discharge Needs: PCP F/U Appt and Surgical F/U Appt (ortho) Anticipated Barriers to Discharge: None Identified Patient/Family Education Needs: Review discharge instructions, discuss Ask Me Three Transportation: Private vehicle Plan: Anticipate that Kathy will be discharged with no new services. She has 2 excellent friends whom Kathy will be staying with until she can be more independent. Her friends have ralllied a list of people to help Kathy with errands and appointments. Kathy will f/u with her PCP and with orthopedics and will continue per her plan of care. CM will continue to follow. Social Determinants of Health Screening Social Determinants of Health last assessed: 06/03/24 Will the Patient Participate in the Screening?: Yes Do you worry about having a steady place to live?: no Problems where you live: no known problems In the past 12 months, have you had to go without electric, gas, oil or water in your home?: no Have you or anyone in your house had to go without enough food to eat?: no Has lack of transportation kept you from medical appointments or from doing things needed for daily living?: no Has anyone in your life made you feel unsafe or unsupported?: no How hard is it for you to pay for the very basics like food, housing, medical care, and heating? Would you say it is:: Not hard at all Do you want help finding or keeping work or a job?: I do not need or want help If for any reason you need help with day-to-day activities such as bathing, preparing meals, shopping, managing finances, etc., do you get the help you need?: I don?t need any help How often do you feel lonely or isolated from those around you?: Never Do you speak a language other than Rwandan at home?: No Does the patient want assistance with any of the above?: No Health Related Social Needs Health related social needs: food insecurity (Z59.41) PFSH All Active Problems (Updated 06/03/24 @ 10:37 by Mal Blanton MD) Bilateral radial fractures (Acute) Paroxysmal atrial fibrillation with RVR (Acute) Distal radius fracture, right (Acute 05/29/24) Fracture of distal end of left radius and ulna (Acute 05/29/24) History of basal cell cancer (Acute) Multiple actinic keratoses (Acute) Rosacea (Acute) Paroxysmal atrial fibrillation (Acute 06/28/16) on eliquis Malignant neoplasm of uterus (Acute 01/30/05) stage 1-s/p TAHBSO Hyperlipidemia (Acute 04/15/12) Annual physical exam (Acute) IBS (irritable bowel syndrome) (Chronic) Lesion of nose (Acute) Cutaneous abscess of buttock (Acute) Surgical History Abdominal hysterectomy (~11/2006) Uterine CA Fracture, Closed Treatment (~10/2011) left fibula Appendectomy (~1970) Family History Mother , 79 Diabetes Essential hypertension Depression Hyperlipidemia Heart disease Father , 65 Heart disease Hyperlipidemia Stroke Esophageal cancer Brother , PE at age 47. Pulmonary embolism Esophageal cancer Brother No problems noted. Maternal Grandfather , 75 Heart disease Stroke Paternal Grandfather , RUPTURED APPENDIX at age 23. No problems noted. Maternal Grandmother , 85 Stroke Paternal Grandmother , 85 Stroke Social History Smoking/Tobacco Use Status: Former Tobacco Use tobacco type: cigarettes Quit Date: 03/03/73 Tobacco: How many years used: 2 Second Hand Exposure: Yes Smoking risk assessment performed?: Yes Alcohol Intake: current Alcohol Intake frequency: a few times a week Alcohol type: wine Drug use: Never Substance use type: does not use Counseling given: No Caregiver/Support person: No Household members: none Housing: house Communication Needs: None and Corrective Lenses Do you need help understanding health information?: Never Pets and animals: Yes Pets and animals: cat(s) Sexually active: No Do you think of yourself as: lesbian/reyes/homosexual Current gender identity: female What is your relationship status?: never How often do you talk on the phone with friends or family?: once per week How often do you get together with friends or relatives?: twice per week How often do you attend hindu or zoroastrianism services?: 4 or more times per year Do you belong to any clubs or organized social groups?: yes Panel score (0-1 are the most socially isolated patients): 3 What type of physical activity do you participate in: walking, weight lifting and additional Details: cymro chi 2x/week, strength & flexibility exercise class 2x/week Duration: 45-60 minutes/day Frequency: daily Aurora/Druze: Protestant Special aurora needs: No (Call a sequins spooler if very ill or dying) Seatbelt use: always Helmet use: No Drive intox or ride w/intox long haul truck driver: No Do you feel safe at home: Yes Do you feel safe in your relationship?: Yes Readmission Within the Past 30 Days Yes or No: No
--- NOTE | 2024-06-03 14:06 | OTIE_ITS ---
Occupational Therapy Notes Inpatient Occupational Therapy Evaluation Date: 06/03/24 Referring Doctor: Dr. Munoz OT Orders: Non Urgent- (B) radial fx Precautions: Fall, Standard, full PATIENT PROFILE/ADMITTING DIAGNOSIS: Pt is a 74 year old female who was admitted for the following dx of (B) radial fx, A-fib with RVR. Past Medical History: All Active Problems (Updated 05/31/24 @ 15:46 by KHOI Ureña) Distal radius fracture, right (Acute 05/29/24) Fracture of distal end of left radius and ulna (Acute 05/29/24) History of basal cell cancer (Acute) Multiple actinic keratoses (Acute) Rosacea (Acute) Paroxysmal atrial fibrillation (Acute 06/28/16) on eliquis Malignant neoplasm of uterus (Acute 01/30/05) stage 1-s/p TAHBSO Hyperlipidemia (Acute 04/15/12) Annual physical exam (Acute) IBS (irritable bowel syndrome) (Chronic) Lesion of nose (Acute) Cutaneous abscess of buttock (Acute) Surgical History Abdominal hysterectomy (~11/2006) Uterine CAFracture, Closed Treatment (~10/2011) left fibulaAppendectomy (~1969) Social History/Home Situation: At baseline pt lives alone and is (I) with all aspects of her ADL/IADL routines. She is limited at this time but has a group of supportive friends who are willing to (A) when medically cleared per MD. She is comfortable with this plan and is able to cover all aspects of her ADLs with (A) to meet her needs at discharge. Equipment owned/DME: (B) casts, grab bars, SUBJECTIVE: Pt was sitting in chair when OT arrived. She notes that she is doing well. She has a great support team outside of her home and was created a plan to be able to meet her needs. She was performing this prior surgery and felt that this was going well. OBJECTIVE: General Observation: Pleasant, IV in (R) UE, (B) fxs and casts, remakrable edema throughout (B) UE Mental Status: A&Ox4 Pain: Pt reports that her pain is well managed. She notes that she feels a significant improvement since prior to surgery. ROM: RUE in cast, digits able to move with notable edema present, no wrist mobility due to cast, can move elbow WFL and shoulder WFL L UE in cast, digits able to move with notable edema present, no other ROM at this time. STRENGTH: OT did not assess pts UE strength d/t restrictions in UE at this time. FUNCTIONAL MOBILITY/ADLS: Transfers with supervision due to A-Fib at times BATHING Pt notes that she has a walk in shower at home. At her friends they have tub showers. Bathing UE/LE Pt only has use of (R) UE, will need (A) with (R) side and lenora area for hygiene Plan- Pt notes that she is close with her friends and they are willing to perform this with/for her until she is able DRESSING Dressing UE Due to (B) casts she has difficulty with overhead, gripping the sh irt and pulling in the appropriate direction. Dressing LE Due to (B) casts she has difficulty with gripping pants and shoes and pulling in the appropriate direction. Plan- Using the in first out last method for her shirt with (L) UE as the first extremity. Elastic shoe laces for her shoes are recommended to help give her (I) with use of long handled shoe horn. Then with socks OT recommends sock aide with one handed technique GROOMING seated in chair able to brush her hair with (R) UE. 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 She is able to brush her teeth (I), needs (A) With tooth paste application and mouth wash in her mouth. Plan-support group is set up to do this for her when discharged. TOILETING Per pt report she has (A) right now with sit to stand due to A-Fib and (A) with toileting hygiene. Plan- She will need (A) with toileting hygiene support group is set up to do this for her when discharged. She was using a towel on the bed to (A) with wiping which was working well prior to surgery. EATING Per pt report- she performed this at lunch and was able to use the (R) UE to feed herself. Plan- She will need (A) with cutting her food, opening packages and containe rs/cooking support group is set up to do this for her when discharged. BALANCE: Static sitting Normal Dynamic Sitting Good Static Standing Good SPECIAL TESTS: Daily Activity Limitations Standardized Measure [facility] AM -PAC ?6 clicks? Daily Activity Inpatient Short Form: Raw score: 10 Standardized score: 27.31 CMS score: 74.70% INFORMED CONSENT/EDUCATION: Pt instructed in purpose of OT Consult and plan of care. ASSESSMENT: Patient is a 74-year-old female referred to occupational therapy services with diagnosis of (B) radial fx, A-fib with RVR. Patient presents with clinical signs and symptoms consistent with dx, as demonstrated by the following impairment level findings/functional limitations: Impairments in ADL/IADL and leisure activities, decreased (B) UE due to fx/post surgery, impairment in gross and fine motor control of (B), decreased reaching, lifting and grasping, decreased toileting routine (I), decreased dressing routine (I), decreased bathing routine (I). AMPAC score 10 Patient is assessed as a high 01284 complexity based on the following: History: see above Examination: see functional limitations as noted above Presentation: evolving Decision Making: AMPAC score 10 GOALS Goals x1 week 1. Transfers (I) 2. Dressing Mod (A) UE, Mod (A) LE 3. Bathing Mod (A) 4. Toileting Mod (A) 5. Eating (I) PLAN OF CARE/TREATMENT PLAN: 1x/day, 3-5 days/ week x 1week Initiate Occupational Therapy Services for bathing, dressing, grooming, toileting, eating, transfer training. DISCHARGE RECOMMENDATIONS OT recommends that pt go to her friends home with care and HH OT/Aide for when friends are not there when medically cleared per MD. Outpatient therapy per ortho recommendations. TREATMENT TIME/MINUTES/CODES 73467, [id number], 35 minutes Amanda Larsen OTR/[facility] [place], [place]
--- NOTE | 2024-06-03 14:33 | CHAPLAIN ---
Kathy fell in her house, suffered fractures in both wrists and had surgery on them both yesterday. She said her pain is controlled and is less now after the surgery than it was after her fall. She has lined up friends with whom she can stay for a bit when she is discharged. Because of an episode of A-fib, Kathy stayed over night and will be here again tonight. Kathy is [employer] and part of the [employer]. Fr. Lyon offered her anointing of the sick prior to her surgery. It seems that friends from her scientology are stepping up to provide care and support on many levels.
--- NOTE | 2024-06-03 14:54 | PTTR_ITS ---
PT Notes Inpatient Physical Therapy Treatment Note [facility] Date: 06/03/2024 PRECAUTIONS:fall risk, may use Right hand for selfcare tasks. SUBJECTIVE: Pt reports she was able to brush her hair wash her face and feed herself lunch with her right hand. She states she just finished with OT david damico. OBJECTIVE: Pt seated in chair ? PAIN: Pt reports her pain is managed with Tylenol and Tramadol. VITALS: ? Pre-Treatment: 95/51 HR 76 ? Post-Treatment: 109/57 HR 73 increased to max 96 per telemetry with ambulation Therapeutic Activities (62423t[]): Direct one-on-one instruction in dynamic activities to improve functional performance. ? BED MOBILITY/TRANSFERS? Sit-stand: supervision ? Stand-sit: supervision? Bed-Chair: supervision ? Chair-bed: supervision Provided skilled cues and instruction on performance and technique throughout. [] Patient education regarding pacing and breathing techniques to maximize activity tolerance? Ambulation: Facilitated safe and correct performance of level surface ambulation covering a distance of 200 feet without device with contact-guard assist Did not report of any increased pain. Denied headache, chest pain, and lightheadedness throughout activity. Minimal verbal cueing provided for directional changes, and posture. without shoes on.? Therapeutic Exercises (72077q[]): Direct one-on-one instruction in therapeutic exercises to develop strength, endurance, range of motion and flexibility. ? Exercises ? sit to stand x 5 reps without UE support seated knee extension, marching hip abd/add Provided skilled instruction in proper exercise performance Provided skilled manual cues to facilitate proper muscle recruitment and/or form: [] ASSESSMENT:? Pt tolerates session well. Pt with appropriate increase in HR during ambulation then return to pre ambulation HR within 1 min. Pt demonstrates slight instability with ambulation she holds BUE in front of her while ambulating therefore lacks armswing to counter weight shifts for stability. PLAN: 1-2x/day, 7 days/week x 1 week.Plan of care has been reviewed with the COMMUNITY WORKER providing the service under Physical Therapy direction. Initiate Physical Therapy intervention for strengthening, bed mobility, transfers, gait, stairs, balance training, use of assistive device TREATMENT CODE/TIME:35486, 37752/ 02:29pm- 02:55pm DISCHARGE RECOMMENDATION: Home with assistance from friends , OT , SOLAR INSTALLATION CREW SUPERVISOR and
[2024-06-03] MEDS: Rosuvastatin 20 MG TAB PO (19:25)
[2024-06-04 02:46] VITALS: BP 120/67; PULSE 90; RESP 18; TEMP 36.1; O2SAT 98
[2024-06-04] MEDS: traMADol 50 MG TAB PO (06:39)
[2024-06-04 07:11] LABS: Vitamin D 25 Total 29 ng/mL (30-100)
[2024-06-04 07:19] VITALS: BP 111/49; PULSE 72; RESP 16; TEMP 36.2; O2SAT 98
--- NOTE | 2024-06-04 07:28 | DSE_ITS ---
Date of service: 06/04/24 Time of Service: 13:01 DS: Diagnosis Discharge Diagnosis (1) Distal radius fracture, right: Status: Acute (2) Fracture of distal end of left radius and ulna: Status: Acute (3) Paroxysmal atrial fibrillation with RVR: Status: Acute Discharge Plan Disposition Patient Disposition: Home W/Home Health Services Condition: Good Discharge Details Reason For Visit: Bilateral Distal Radius Fracture Admit Date/Time: 06/02/24 14:01 Admit Provider: Abhinav Munoz Attending Provider: Abhinav Munoz Primary Care Provider: Enoc Collier Hospital Course Hospital Course: Kathy was admitted to the medical/surgical floor following the procedure. The surgery was tolerated well without any notable medical, surgical, or anesthetic complications except periods of rapid heart rate which improved with diltiazem. Mobilization began postoperatively. She was voiding spontaneously Physical therapy worked with the patient and was cleared for discharge home. No acute medical issues. Pain was controlled on oral regimen. Medicine was consulted for post operative atrial fibrillation with rapid ventricular response despite her home diltiazem ER. She was given one dose of IV metoprolol on POD #1 which brought her rate down nicely and this was not repeated. Additional oral diltiazem was ordered PRN every 6 hours but she did not recieve this in the 24 hours prior to discharge. The rapid rate was attribute to post-operative stress and she was discharged on her home 180mg diltiazem ER for rate control. Apixaban was continued on discharge for stroke prevention. She had previously not tolerated oral bisphosphonate for her osteoporosis. IV zolendronate was recommended but she declined to to concerns about side effects. She wanted to discuss options with PCP. Home Meds and New Rx's Prescriptions: New acetaminophen 500 mg tablet 1,000 mg PO TID Qty: 90 3RF tramadol 50 mg tablet 50 mg PO Q4H PRNQty: 18 0RF ibuprofen 600 mg tablet 600 mg PO TID PRNQty: 90 3RF Continued loratadine [Claritin] 10 mg tablet 10 mg PO DAILY PRN calcium carbonate-vitamin D3 [Caltrate with Vitamin D3] 600 mg-20 mcg (800 unit) tablet 2 tab PO BID fluorouracil [Efudex] 5 % cream 1 applic topical bid 21 Days Qty: 40 1RF Eliquis 5 mg tablet 5 mg PO BID Qty: 180 3RF diltiazem HCl 180 mg capsule,extended release 24hr 180 mg PO DAILY Qty: 90 3RF rosuvastatin 20 mg tablet 20 mg PO DAILY Qty: 90 3RF Morphine Ir, 4 Tabs/Btl [Msir, 4 Tabs/Btl] 15 mg PO DISPENSE PRNQty: 4 0RF Discontinued acetaminophen [Tylenol Extra Strength] 500 mg tablet 500 - 1,000 mg PO DAILY PRN PRN Discharge Instructions Additional Instructions: Wrist Fracture Fixation Discharge Instructions Activity: You should keep the hands/wrists elevated as much as possible for the first few days. You may use the other fingers as tolerated but avoid trying to do too much too soon. You may perform light activities with the splint in place. Avoid doing too much with the left side. Dressing/Cast: Your splints should stay in place at all times. Do NOT get it wet. You may loosen the ЮЛИЯ wrap if you feel it is too tight and then rewrap more loosely. Medications: - You should take Tylenol and Ibuprofen for baseline pain control. - You have been prescribed a stronger pain medication, Tramadol, for breakthrough pain. - You may apply ice over the wrist, just double bag so it doesn't get wet. Follow-up: 10-14 days 1. Encounter Date and Reason I certify that Kathy Elaine was seen by Abhinav Munoz MD on 06/04/24 and that I had a obso-ra-taxt encounter with this patient that meets the physician face to face encounter requirements. 2. Clinical Findings Supporting Skilled Need and Homebound Status I certify that home health services are medically necessary, include either intermittent detention and/or physical/speech therapy, and that this patient is homebound in that absences from the home require considerable and taxing effort and are infrequent or of short duration, or are attributable to the need to receive medical care. [X] (a) Attached documentation from encounter provides clinical findings supporting skilled need and homebound status (including what assistance patient requires to leave the home). The encounter with the patient was in whole, or in part, for the following medical condition, which is the primary reason for home health care: Snf: Kathy will benefit from home health nursing to monitor and assess her heart rate with her atrial fibrillation with rapid ventricular rate. Physical Therapy: Kathy would benefit from physcial and occupational therapy to assist with ADL and independent function in her home give her bilateral wrist fractures. She may use the right hand for ADL without restriction except to keep the splint in place. Speech Therapy: Homebound: Kathy is unable to leave her home unassisted due to bilateral wrist fractures. 3. Certification and Authentication I certify that I composed the above information based on my clinical judgement relating to this patient's medical condition and, if applicable, clinical findings communicated to me by the NPP or inpatient physician who performed the Home Health Referral. All further orders will be obtained through Dr. Munoz Stand Alone Forms: Nursing Discharge Form Activity:: Elevate/Light Activity Equipment/Supplies:: No Equipment Needed Diet:: As Tolerated Discharge Orders Discharge Orders: Discharge Order (Routine); Ordered 06/04/24 Ordered By: Salomón Lala Discharge Data Discharge Date/Time-TO BE ENTERED AT DEPARTURE: 06/04/24 14:58 DS: Summary Time Spent with Patient providing and/or coordinating discharge services: Less than 30 minutes Status at Discharge Functional status at discharge: independent ambulation Overall status at discharge: patient is progressing back to baseline Mental Status: mental status grossly normal Speech and Movement: speech and movement normal Mood: congruent mood Affect: normal affect Quality:SDOH Health Related Social Needs: Health related social needs food insecurity (Z59.41) Exam Psych Mental Status: mental status grossly normal Speech and Movement: speech and movement normal Mood: congruent mood Affect: normal affect DS: Data Vitals/I&O Vitals and I&O: Vital Signs Temperature 36.2 C L 06/04/24 07:19 Temperature Source Temporal Artery Scan 06/04/24 07:19 Pulse 72 06/04/24 07:19 Pulse Rhythm Irregular 06/02/24 21:15 Respiratory Rate 16 06/04/24 07:19 Respiratory Effort Normal 06/02/24 21:15 Respiratory Depth Normal 06/02/24 21:15 Respiratory Pattern Normal 06/02/24 21:15 Blood Pressure 111/49 L 06/04/24 07:19 Pulse Oximetry 98 06/04/24 07:19 Respiratory End-tidal CO2 37 06/02/24 18:17 Oxygen Delivery Method Room Air 06/04/24 07:19 Oxygen Flow Rate 0 06/04/24 07:19 Pain Level 6 06/04/24 07:19 Comment notifying RN 06/03/24 11:23 Intake & Output 06/03/24 06/03/24 06/04/24 11:59 23:59 11:59 Output Total 500 / 500 1450 / 1450 Balance -500 / -500 -1450 / -1450 Output: Urine 500 / 500 1450 / 1450 Post Void Residual 0 / 0 Other: Urine Color Light Sarai Yellow Yellow Urine Appearance Clear Clear Clear Urine Odor Strong Normal None Comment Patient used the bed proctor with one person assist. Data Completed and Pending Labs on day of discharge: Labs from last 24 hours 06/04/24 06/03/24 06:12 05:56 Sodium 139 Potassium 4.6 Chloride 104 Carbon Dioxide 25.9 Anion Gap 9.1 BUN 24 H Creatinine 0.7 Est GFR (CKD-EPI 2020) 91.26 Glucose 133 H Calcium 8.6 Total Bilirubin 0.5 AST 17 ALT 18 Alkaline Phosphatase 53 Total Protein 6.7 Albumin 3.1 L 25-OH Vitamin D Total 29 L PFSH All Active Problems (Updated 06/04/24 @ 11:35 by Shai Hankins) Osteoporosis (Chronic) Bilateral radial fractures (Acute) Paroxysmal atrial fibrillation with RVR (Acute) Distal radius fracture, right (Acute 05/29/24) Fracture of distal end of left radius and ulna (Acute 05/29/24) History of basal cell cancer (Acute) Multiple actinic keratoses (Acute) Rosacea (Acute) Paroxysmal atrial fibrillation (Acute 06/28/16) on eliquis Malignant neoplasm of uterus (Acute 01/30/05) stage 1-s/p TAHBSO Hyperlipidemia (Acute 04/15/12) Annual physical exam (Acute) IBS (irritable bowel syndrome) (Chronic) Lesion of nose (Acute) Cutaneous abscess of buttock (Acute) Surgical History Abdominal hysterectomy (~11/2006) Uterine CA Fracture, Closed Treatment (~10/2011) left fibula Appendectomy (~1969) Family History Mother , 79 Diabetes Essential hypertension Depression Hyperlipidemia Heart disease Father , 65 Heart disease Hyperlipidemia Stroke Esophageal cancer Brother , PE at age 47. Pulmonary embolism Esophageal cancer Brother No problems noted. Maternal Grandfather , 75 Heart disease Stroke Paternal Grandfather , RUPTURED APPENDIX at age 23. No problems noted. Maternal Grandmother , 85 Stroke Paternal Grandmother , 85 Stroke Social History Smoking/Tobacco Use Status: Former Tobacco Use tobacco type: cigarettes Quit Date: 03/03/73 Tobacco: How many years used: 2 Second Hand Exposure: Yes Smoking risk assessment performed?: Yes Alcohol Intake: current Alcohol Intake frequency: a few times a week Alcohol type: wine Drug use: Never Substance use type: does not use Counseling given: No Caregiver/Support person: No Household members: none Housing: house Communication Needs: None and Corrective Lenses Do you need help understanding health information?: Never Pets and animals: Yes Pets and animals: cat(s) Sexually active: No Do you think of yourself as: lesbian/reyes/homosexual Current gender identity: female What is your relationship status?: never How often do you talk on the phone with friends or family?: once per week How often do you get together with friends or relatives?: twice per week How often do you attend latter-day or mu-ism services?: 4 or more times per year Do you belong to any clubs or organized social groups?: yes Panel score (0-1 are the most socially isolated patients): 3 What type of physical activity do you participate in: walking, weight lifting and additional Details: french chi 2x/week, strength & flexibility exercise class 2x/week Duration: 45-60 minutes/day Frequency: daily Aurora/Moravian: [employer] Special aurora needs: No (Call a molasses coloring operator if very ill or dying) Seatbelt use: always Helmet use: No Drive intox or ride w/intox newspaper delivery driver: No Do you feel safe at home: Yes Do you feel safe in your relationship?: Yes Time Spent with Patient Time Spent with Patient: <45 minutes Time was spent: preparing to see the patient(eg.review tests), obtaining and/or reviewing separately otained hiistory and counseling the patient
[2024-06-04 07:30] VITALS: BP 110/69
[2024-06-04] MEDS: dilTIAZem CD 180 MG CAPCR PO (07:33)
[2024-06-04] MEDS: Apixaban 5 MG TAB PO (07:33)
[2024-06-04] MEDS: Acetaminophen 500 MG TAB 1000 MG PO ×2 (07:33→13:33)
--- NOTE | 2024-06-04 09:28 | PT.INTREAT ---
PT Notes Inpatient Physical Therapy Treatment Note [facility] Date: 06/04/2024 PRECAUTIONS:fall risk, may use Right hand for selfcare tasks. SUBJECTIVE: Pt reports she is feeling better but still has pain in the left wrist. Pt reports her pain is managed with Tylenol and Tramadol. although She notes the left wrist is painful with all movement of LUE. OBJECTIVE: Pt seated in chair ? PAIN:pt reported pre med 08/10 after meds 05/10 left VITALS: ? Pre-Treatment: 110/69 HR 74 ? Therapeutic Activities (48610s[]): Direct one-on-one instruction in dynamic activities to improve functional performance. ? BED MOBILITY/TRANSFERS? Sit-stand: supervision ? Stand-sit: supervision? Bed-Chair: supervision ? Chair-bed: supervision Provided skilled cues and instruction on performance and technique throughout. [] Patient education regarding pacing and breathing techniques to maximize activity tolerance? Ambulation: Facilitated safe and correct performance of level surface ambulation covering a distance of 200 feetx2 65 feet x 1 without device with contact-guard assist/SBA Did not report of any increased pain. Denied headache, chest pain, and lightheadedness throughout activity. Minimal verbal cueing provided for directional changes, and posture. without shoes on.? Stairs: 5 steps with right rail hand resting on rail no weight, CGA reciprocal pattern? Therapeutic Exercises (43113q[]): Direct one-on-one instruction in therapeutic exercises to develop strength, endurance, range of motion and flexibility. ? Exercises ? sit to stand x 5 reps without UE support seated ankle pumps, knee extension, marching scap retraction , shoulder depression, elbow extension stand heel raises, marching 10 reps Provided skilled instruction in proper exercise performance ASSESSMENT:? Pt tolerates session well. Pt with improved stability with gait intermittent wide step with left LE. Pt continues to amb in high guard UE position with hands in front of chest RUE supporting left. pt able to perform stairs with CGA and right UE resting on railing for reassurance. PLAN: 1-2x/day, 7 days/week x 1 week.Plan of care has been reviewed with the RETAIL PERSONAL BANKER providing the service under Physical Therapy direction. Initiate Physical Therapy intervention for strengthening, bed mobility, transfers, gait, stairs, balance training, use of assistive device TREATMENT CODE/TIME:36584, 00392/ [id number] DISCHARGE RECOMMENDATION: Home with assistance from friends , OT , DIRECTOR EXTERNAL COMMUNICATIONS and
--- NOTE | 2024-06-04 11:26 | PGE_ITS ---
Date of Service Date of service: 06/04/24 Time of Service: 11:27 Assessment and Plan Assessment and plan (1) Paroxysmal atrial fibrillation with RVR: Status: Acute Assessment and plan: - Patient has a history of paroxysmal A-fib and is normally on 180 mg p.o. long- acting diltiazem daily as well as Eliquis, both of which have been continued -Patient was noted postoperatively to have elevated heart rates but improved prior to coming up to [facility] unit -Overnight 06-20 patient's heart rates again increased and she was started on an additional 30 mg of p.o. short acting diltiazem every 6 hours PRN -However, the morning of 06/03/2024 patient's heart rate was again elevated up to the 160s, but significantly improved within 10 minutes of administration of 5 mg of IV Lopressor -over the last 24 hours heart rates have been reasonably controlled without additional metoprolol IV or oral short acting diltiazem. -Brief RVR was attributable to operative stress. -Home today on previous home dose of diltizem ER 180mg and her apixaban. (2) Bilateral radial fractures: Status: Acute Assessment and plan: - Postop day 2 status post bilateral fixation -Continue to manage as per orthopedic surgery, likely discharge today. 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 Clinically c/w osteoporosis on surgery of wrist. She had GI and some mild systemic side effects with alendronate. Zolendronate IV recommended, safe to give now, but she declines. Will d/w PCP. Subjective Subjective Patient reports: tolerating a regular diet; denies shortness of breath or fever Interval history since last seen: Events: no additional rate control agents given overnight She feels okay. No chest pain, palpitations, or dizziness. She was getting edema in legs when in chair all day yesterday, but better today, moving more. Exam Narrative Exam Narrative: Well-appearing female sitting up in bed in no acute distress, ANO x 4, heart irregularly irregular with rates in the 80s to 90s, lungs clear to auscultation bilaterally with normal effort, abdomen soft, nontender, nondistended, bilateral wrists wrapped in postoperative bandages without surrounding swelling, erythema or drainage. lower ext not tender, warm, no edema. Objective Last Vital Signs Temp 36.2 C L 06/04/24 07:19 Pulse 72 06/04/24 07:19 Resp 16 06/04/24 07:19 BP 110/69 06/04/24 07:30 Pulse Ox 98 06/04/24 07:19 Laboratory Results - last 24 hr 06/03/24 06/04/24 05:56 06:12 Sodium 139 Potassium 4.6 Chloride 104 Carbon Dioxide 25.9 Anion Gap 9.1 BUN 24 H Creatinine 0.7 Est GFR (CKD-EPI 2020) 91.26 Glucose 133 H Calcium 8.6 Total Bilirubin 0.5 AST 17 ALT 18 Alkaline Phosphatase 53 Total Protein 6.7 Albumin 3.1 L 25-OH Vitamin D Total 29 L Time Spent with Patient Time Spent with Patient: 25-34 minutes Time was spent: preparing to see the patient(eg.review tests), obtaining and/or reviewing separately otained hiistory, ordering medications,tests, procedures, referring, communicating with other health assisted living care manager, indepentently interpreting results, counseling the patient and care coordination
[2024-06-04 11:27] VITALS: BP 108/64; PULSE 89; RESP 16; TEMP 36.1; O2SAT 97
--- NOTE | 2024-06-04 12:42 | PDOC.CMDIS ---
Date of service: 06/04/24 Time of Service: 13:45 LACE Index Scoring Tool Questions: Length of Stay (in days): 2 Was the patient admitted via the E.D.?: No Comorbidities: Any Tumor E.D. Visits: 1 Answers: Total Score: 5 Risk of Readmission: Low Risk Care Management Discharge Plan Reason for Hospitalization: bilateral wrist fractures, s/p ORIF of both Discharge Plan: Kathy is discharged home today with new orders for PT/OT, with a concentration on OT. She plans to stay with a friend until she can adequately care for herself. Kathy has a very good group of friends who have offered their supports. Kathy will f/u with ortho on 06/14 and with her PCP, and will continue per her plan of care. Kathy will be transported home by her friend. Patient/Family Education Needs: Review of discharge instructions, activity, limitation, plan of care and discuss, Ask me 3. SDOH Health Related Social Needs: Health related social needs food insecurity (Z59.41)
--- NOTE | 2024-06-04 14:13 | PT.INNT ---
PT Notes Visit Reasons: Bilateral Distal Radius Fracture declined PT this pm stating that she was in the process of being discharged. States that she is staying with a friend for a few days, until HH OT evaluates her home for safety.
== END 2024-06-04 14:58 | disposition home health service (06) | DRG 511 ==
LOC: MS 06-03 08:21
PROVIDERS: Admitting Provider Student in an Organized Health Care Education/Training Program; PCP Family Medicine; Responsible Provider Student in an Organized Health Care Education/Training Program; Visit Provider Student in an Organized Health Care Education/Training Program
PROC: 0PSJ04Z Reposition Left Radius with Internal Fixation Device, Open Approach (ICD-10-PCS; CPT 25609; principal; 2024-06-02 14:45)
DX: S52.572A Other intraarticular fracture of lower end of left radius, initial encounter for closed fracture (principal); S52.501A Unspecified fracture of the lower end of right radius, initial encounter for closed fracture; S52.602A Unspecified fracture of lower end of left ulna, initial encounter for closed fracture; M81.0 Age-related osteoporosis without current pathological fracture; I48.0 Paroxysmal atrial fibrillation; W01.0XXA Fall on same level from slipping, tripping and stumbling without subsequent striking against object, initial encounter; E78.5 Hyperlipidemia, unspecified; L71.9 Rosacea, unspecified; K58.9 Irritable bowel syndrome, unspecified; Z87.891 Personal history of nicotine dependence; Z85.42 Personal history of malignant neoplasm of other parts of uterus; Z85.828 Personal history of other malignant neoplasm of skin; Z79.01 Long term (current) use of anticoagulants
CPT/HCPCS: 25609; 25607; 00123; 36415; 76000; 80053; 82306; 85027; 96365; 96366; 96375; 97110; 97112; 97162; 97167; 97530; 97535; 73100; 99223; 99232; J0131; J0690; J1100; J2371; J2405; J2704; J3010; J3475

== ENCOUNTER 2024-06-11 12:37 | Outpatient (CLI) | payer MEDICARE, BC, SELFPAY ==
--- NOTE | 2024-06-11 13:00 | RT.EKG_ITS ---
APPROVED REPORT Exam: Resting ECG Reason for Exam: follow up Patient Location: O HR:89 bpm ECG Measurements Heart Rate 89 AXIS MT [id number] P [id number] QRSd 90 QRS 23 QT 359 T 28 QTc 437 Conclusion Atrial fibrillation...V-rate 70-106, irreg A-activity Late transition
== END 2024-06-11 12:38 | disposition home or self-care (01) ==
LOC: DI.CARD 13:03
PROVIDERS: PCP Family Medicine; Referring Provider Family Medicine; Visit Provider Internal Medicine Cardiovascular Disease
DX: I48.0 Paroxysmal atrial fibrillation (principal)
CPT/HCPCS: 93010

== ENCOUNTER → 2024-06-11 12:37 | Outpatient (BNVA) | payer MEDICARE, BC, SELFPAY | PROVIDERS: PCP Family Medicine; Referring Provider Family Medicine; Visit Provider Internal Medicine Cardiovascular Disease | DX: M81.0 Age-related osteoporosis without current pathological fracture (principal); I48.0 Paroxysmal atrial fibrillation | CPT/HCPCS: 93005; 99214 ==

== ENCOUNTER 2024-06-14 14:53 | Outpatient (CLI) | payer MEDICARE, BC, SELFPAY ==
--- NOTE | 2024-06-14 14:55 | DI.RAD_ITS ---
Exam(s) XR WRIST LT LIMITED EXAM: XR WRIST LT LIMITED CLINICAL HISTORY: 1ST POST OP S/P BILAT ORIF WRISTS. TECHNIQUE: 2D digital imaging was performed. Three views. COMPARISON: CR,XR XR WRIST LT LIMITED from 05/29/2024 FINDINGS: BONES: Fixation plate is again noted in the full aspect of the distal radius for fracture fixation. The alignment appears unchanged. There is increased displacement and angulation as well as impaction at the previously noted distal ulnar fracture. The ulnar styloid tip fracture is unchanged. No bon y destructive lesion is seen. JOINTS: The carpal bones are normally aligned. There are degenerative changes at the 1st carpal met acarpal joint and navicular trapezium trapezoid joint. SOFT TISSUE: Mild swelling IMPRESSION: Stable appearance of distal radial hardware in fracture. Increased displacement at the distal ulnar fracture. DATA REPOSITORY: RADIATION DOSE DELIVERED:
--- NOTE | 2024-06-14 14:56 | DI.RAD_ITS ---
Exam(s) XR WRIST RT LIMITED EXAM: XR WRIST RT LIMITED CLINICAL HISTORY: 1ST POST OP S/P BILAT ORIF WRISTS. TECHNIQUE: 2D digital imaging was performed. Three views. COMPARISON: CR,XR XR WRIST RT COMPLETE from 05/29/2024 CR XR WRIST RT LIMITED from 06/02/2024 FINDINGS: BONES: Stable alignment of distal radial fracture and volar fixation plate. No bony destructive lesi on is seen. JOINTS: The carpal bones are normally aligned. SOFT TISSUE: Normal. IMPRESSION: Stable fracture and hardware alignment. DATA REPOSITORY: RADIATION DOSE DELIVERED:
== END 2024-06-14 14:54 | disposition home or self-care (01) ==
LOC: DIORS 14:53
PROVIDERS: PCP Family Medicine; Referring Provider Family Medicine; Visit Provider Physician Assistant
DX: S52.572D Other intraarticular fracture of lower end of left radius, subsequent encounter for closed fracture with routine healing; S52.501D Unspecified fracture of the lower end of right radius, subsequent encounter for closed fracture with routine healing; X58.XXXD Exposure to other specified factors, subsequent encounter
CPT/HCPCS: 99024; 73100

== ENCOUNTER 2024-06-28 15:55 | Outpatient (CLI) | payer MEDICARE, BC, SELFPAY ==
--- NOTE | 2024-06-28 13:45 | DI.RAD_ITS ---
Exam(s) XR WRIST LT LIMITED EXAM: XR WRIST LT LIMITED CLINICAL HISTORY: S/P ORIF L WRIST FX. TECHNIQUE: 2D digital imaging was performed of the left wrist. Four images were obtained. Scaphoid , PA, oblique and lateral views were obtained. COMPARISON: CR XR WRIST LT LIMITED from 06/14/2024 FINDINGS: BONES: There are stable postsurgical changes of a sideplate and screws in the distal left radius. Th ere has been no change in alignment of the displaced and impacted ulnar styloid process fracture. No new fracture is identified. No bony destructive lesion is seen. JOINTS: Degenerative changes are seen in the wrist at the articulation of the scaphoid and trapezium and trapezoid and the 1st CMC joint. There also marked degenerative changes seen at the interphalang eal joint of the thumb. SOFT TISSUE: Normal. IMPRESSION: Stable appearance of the left wrist. DATA REPOSITORY: RADIATION DOSE DELIVERED:
== END 2024-06-28 15:56 | disposition home or self-care (01) ==
LOC: DIORS 15:55
PROVIDERS: PCP Family Medicine; Visit Provider Family Medicine
DX: S52.572D Other intraarticular fracture of lower end of left radius, subsequent encounter for closed fracture with routine healing (principal); S52.501D Unspecified fracture of the lower end of right radius, subsequent encounter for closed fracture with routine healing; X58.XXXD Exposure to other specified factors, subsequent encounter
CPT/HCPCS: 99024; 73100

== ENCOUNTER 2024-07-15 11:17 | Outpatient (CLI) | payer MEDICARE, BC, SELFPAY ==
--- NOTE | 2024-07-15 11:15 | DI.RAD_ITS ---
Exam(s) XR WRIST LT LIMITED EXAM: XR WRIST LT LIMITED CLINICAL HISTORY: S/P ORIF BILAT WRISTS. TECHNIQUE: 2D digital imaging was performed. Two images were obtained. PA and lateral views were ob tained. COMPARISON: CR XR WRIST LT LIMITED from 06/28/2024 FINDINGS: BONES: There are stable post operative changes present. There is stable alignment of the distal radi al and ulnar fractures and the orthopedic hardware. The fracture lines are still visualized. No new fracture or dislocation. JOINTS: The joint spaces are well maintained. SOFT TISSUE: Normal. IMPRESSION: Stable alignment of the distal left radial and ulnar fractures in the orthopedic hardware. DATA REPOSITORY: RADIATION DOSE DELIVERED:
--- NOTE | 2024-07-15 11:15 | DI.RAD_ITS ---
Exam(s) XR WRIST RT LIMITED EXAM: XR WRIST RT LIMITED CLINICAL HISTORY: S/P BILAT WRIST ORIF. TECHNIQUE: 2D digital imaging was performed. Two images were obtained. PA and lateral views were ob tained. COMPARISON: CR,XR XR WRIST RT COMPLETE from 05/29/2024 CR XR WRIST RT LIMITED from 06/14/2024 FINDINGS: BONES: There are stable post operative changes present. The posterior aspect of the fracture deformi ty is best appreciated on the lateral view. No new fracture or dislocation. JOINTS: The joint spaces are well maintained. SOFT TISSUE: Normal. IMPRESSION: Stable fracture and hardware. DATA REPOSITORY: RADIATION DOSE DELIVERED:
== END 2024-07-15 11:18 | disposition home or self-care (01) ==
LOC: DIORS 11:17
PROVIDERS: PCP Family Medicine; Referring Provider Family Medicine; Visit Provider Student in an Organized Health Care Education/Training Program
DX: S52.91XD Unspecified fracture of right forearm, subsequent encounter for closed fracture with routine healing (principal); S52.92XD Unspecified fracture of left forearm, subsequent encounter for closed fracture with routine healing; X58.XXXD Exposure to other specified factors, subsequent encounter
CPT/HCPCS: 99024; 73100

== ENCOUNTER 2024-07-19 02:43 | Outpatient (CLI) | payer MEDICARE, BC, SELFPAY ==
--- NOTE | 2024-07-19 06:15 | DI.CT_ITS ---
Exam(s) CT UPPER EXTREMITY LT WO EXAM: CT UPPER EXTREMITY LT WO CLINICAL HISTORY: PAIN,lt radial fx,[id number] TECHNIQUE: Imaging Protocol: Axial computed tomography images with coronal and sagittal reformatted images were created and reviewed. IMAR sequences also employed CONTRAST MATERIAL: Noncontrast COMPARISON: CR XR WRIST LT LIMITED from 06/02/2024 CR XR WRIST RT LIMITED from 06/14/2024 CR XR WRIST LT LIMITED from 06/14/2024 CR XR WRIST LT LIMITED from 07/15/2024 FINDINGS: Artifact related to fixation plate in the distal radius. Bones: There stable alignment of distal radial fracture with hardware in place. Lucency remains pres ent. No visible bony bridging. There is significant lucency the distal ulnar fracture site. Fractu res also unchanged in alignment. No additional fractures are detected. The radial carpal joint is p artially obscured by artifact. There is an apparent wrist joint effusion. No cellulitic or osteomyelitic changes are identified. Degenerative changes are present at the 1st carpal metacarpal joint No lytic or sclerotic lesions are identified. Soft Tissues: Normal. IMPRESSION: The distal ulnar fracture shows significant surrounding lucency. No bony erosions. A wrist joint ef fusion is present. RADIATION DOSE DELIVERED: 80.76mGy.cm Total DLP DATA REPOSITORY: All CT scans at this facility are submitted to the National Radiology Data Registry (NRDR) Dose Index Registry (DIR) with the [employer] ([employer]). RADIATION OPTIMIZATION: All CT scans at this facility use at least one of these dose optimization te chniques: automated exposure control; mA and/or kV adjustment per patient size (includes targeted exa ms where dose is matched to clinical indication); or iterative reconstruction.
== END 2024-07-19 03:03 ==
LOC: DI 02:43
PROVIDERS: PCP Family Medicine; Visit Provider Student in an Organized Health Care Education/Training Program
DX: S52.92XA Unspecified fracture of left forearm, initial encounter for closed fracture (principal); X58.XXXA Exposure to other specified factors, initial encounter
CPT/HCPCS: 73200

== ENCOUNTER 2024-08-30 11:10 | Outpatient (CLI) | payer MEDICARE, BC, SELFPAY ==
--- NOTE | 2024-08-30 10:45 | DI.RAD_ITS ---
Exam(s) XR WRIST LT LIMITED EXAM: XR WRIST LT LIMITED CLINICAL HISTORY: ORIF wrist. TECHNIQUE: 2D digital imaging was performed. Three views. COMPARISON: CR XR WRIST LT LIMITED from 07/15/[address] UPPER EXTREMITY LT WO from 07/19/2024 FINDINGS: BONES: A volar fixation plate is again noted. The distal radial fracture alignment appears stable. Abnormal increased lucency is again noted at the distal ulnar fracture site with some separation of the fragments. The alignment is unchanged. Advanced degenerative changes at the 1st carpal metacarpal joint. JOINTS: The carpal bones are normally aligned. SOFT TISSUE: Swelling around the wrist. IMPRESSION: Stable distal radial and ulnar fracture alignment. Significant lucency the distal ulnar fracture DATA REPOSITORY: RADIATION DOSE DELIVERED:
--- NOTE | 2024-08-30 11:00 | DI.RAD_ITS ---
Exam(s) XR WRIST RT LIMITED EXAM: XR WRIST RT LIMITED INDICATION: eval R wrist ORIF. COMPARISON: CR XR WRIST RT LIMITED from 07/15/2024 CR XR WRIST LT LIMITED from 08/30/2024 TECHNIQUE: 2D digital imaging was performed. Two views. FINDINGS: A fixation plate is again noted along the volar aspect of the distal radius for fracture fixation. The fracture margins are no longer visible. There are no new abnormalities. DATA REPOSITORY: RADIATION DOSE DELIVERED:
== END 2024-08-30 11:11 | disposition home or self-care (01) ==
LOC: DIORS 11:10
PROVIDERS: PCP Family Medicine; Visit Provider Student in an Organized Health Care Education/Training Program
DX: S52.501D Unspecified fracture of the lower end of right radius, subsequent encounter for closed fracture with routine healing (principal); S52.502G Unspecified fracture of the lower end of left radius, subsequent encounter for closed fracture with delayed healing; X58.XXXD Exposure to other specified factors, subsequent encounter
CPT/HCPCS: 99214; 73100

== ENCOUNTER 2024-09-10 12:04 | Day surgery (SDC) | payer MEDICARE, BC, SELFPAY | END 2024-09-10 12:05 | disposition home or self-care (01) | LOC: SUR 10-27 12:04 | PROVIDERS: PCP Family Medicine; Visit Provider Student in an Organized Health Care Education/Training Program | DX: Z53.29 Procedure and treatment not carried out because of patient's decision for other reasons (principal) ==

== ENCOUNTER 2024-10-11 11:48 | Outpatient (CLI) | payer MEDICARE, BC, SELFPAY ==
--- NOTE | 2024-10-11 11:30 | DI.RAD_ITS ---
Exam(s) XR WRIST LT LIMITED EXAM: XR WRIST LT LIMITED INDICATION: s/p ORIF L wrist. COMPARISON: CR XR WRIST LT LIMITED from 07/15/2024 CR XR WRIST RT LIMITED from 08/30/2024 CR XR WRIST LT LIMITED from 08/30/2024 TECHNIQUE: 2D digital imaging was performed. Two views. FINDINGS: There has been no change in the urine alignment of the distal radial fracture fixation hardware. The radial fracture is obscured by the hardware. There has been no change in the amount of lucency around the distal ulnar fracture. The bones again appear osteopenic. DATA REPOSITORY: RADIATION DOSE DELIVERED:
== END 2024-10-11 11:49 | disposition home or self-care (01) ==
LOC: DIORS 11:48
PROVIDERS: PCP Family Medicine; Visit Provider Student in an Organized Health Care Education/Training Program
DX: S52.91XD Unspecified fracture of right forearm, subsequent encounter for closed fracture with routine healing (principal); S52.92XD Unspecified fracture of left forearm, subsequent encounter for closed fracture with routine healing; X58.XXXD Exposure to other specified factors, subsequent encounter
CPT/HCPCS: 99212; 73100

== ENCOUNTER → 2024-12-28 09:23 | Outpatient (BNVA) | payer MEDICARE, BC, SELFPAY | PROVIDERS: PCP Family Medicine; Visit Provider Internal Medicine Cardiovascular Disease | DX: I48.0 Paroxysmal atrial fibrillation (principal); E78.00 Pure hypercholesterolemia, unspecified; Z79.01 Long term (current) use of anticoagulants | CPT/HCPCS: 99213 ==

== ENCOUNTER → 2025-01-03 12:59 | Outpatient (BNVA) | payer MEDICARE, BC, SELFPAY | PROVIDERS: PCP Family Medicine; Referring Provider Family Medicine; Visit Provider Student in an Organized Health Care Education/Training Program | DX: S52.501D Unspecified fracture of the lower end of right radius, subsequent encounter for closed fracture with routine healing (principal); S52.502D Unspecified fracture of the lower end of left radius, subsequent encounter for closed fracture with routine healing; S52.602D Unspecified fracture of lower end of left ulna, subsequent encounter for closed fracture with routine healing; W19.XXXD Unspecified fall, subsequent encounter | CPT/HCPCS: 99212 ==